=== PATIENT | male | born 2005 | race Caucasian/White ===

== ENCOUNTER 2025-04-18 10:47 | Outpatient (AMB) | payer OTHER, SELFPAY ==
--- NOTE | 2025-04-18 11:00 | MHC.PC.OV ---
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 Intake Note: New patient to establish care and cpe Enterprise Infrastructure Architect Required: No Allergies No Known Allergies Allergy (Verified 04/18/25 11:17) Medication List - Last Reconciled 04/18/25 by TEVIN Cooley-NELL infliximab (Remicade) IV Tobacco use date assessed: 04/18/25 Dental Screening Dental Screen Date: 04/18/25 Did you have a dental visit in the last 12 months?: No Did you have a dental problem in the last 6 months where you did not have access to dental care?: No Was dental information given to patient?: Yes HPI HPI Comments History of Present Illness Details 20 y/o M with obesity, ulcerative colitis Social: Computer Science and IT; 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 Looking for work. Surgery: None Family hx: Mom w/ prediabetes; Dad HLD; 1 brother, 1 sister; MGM alive; MGF alive; PGM alive; PGF alive Health Maintenance Tdap 2021 Specialist: Optho - wears glasses GI History of Present Illness - The patient is a 20-year-old male here today to [facility], for a CPE and c/o back pain and leg pain. -No records, Coming from [facility] - Gradual onset of R ankle tendinitis flare since last Friday; worsens with lack of PT. - Right ankle pain, specifically worsens with movement. - Reports morning exacerbation of back pain, from upper to lower back w/ radiation down posterior R leg, started a few days ago w/o injury. - Tylenol ineffective; no trauma or injury evident. - On Remicade for ulcerative colitis since 16, no surgeries except colonoscopies. - Mild anxiety and depression, no previous counseling. Does not think he needs meds or counseling. - Mother with prediabetes prompts cholesterol and diabetes screenings. - Planning a two-week family visit to [place]. Past Surgical History - Two colonoscopies Family History - Mother: Prediabetes - Father: Elevated cholesterol - Maternal and paternal grandparents: Alive and healthy - Siblings: Alive and well Social History - Recently completed a [employer] science and [employer] degree. - Currently unemployed, seeking employment. - Not sexually active. - Upcoming family visit to [place] for two weeks. - Engages in planned physical therapy sessions and regular eye exams - No tobacco, alcohol, or substance use reported. Health Maintenance - Up-to-date on vaccinations, including tetanus shot in 2021. - Positive screenings for anxiety and depression, but only mild symptoms reported by patient. - Routine eye examinations recommended due to Remicade use. - Recommended cholesterol and diabetes screening given family history. Review of Systems - General: Reports some weight issues. - Musculoskeletal: Reports back and leg pain, specifically right ankle. - Neurological: Denies any injury to the affected areas. - Gastrointestinal: Denies bowel surgeries; under ulcerative colitis management. - Psychiatric: Reports anxiety and depressive symptoms without counseling. Physical Exam General: Well developed, well nourished, in no acute distress. Appears stated age. Head: Normocephalic, atraumatic. Eyes: Pupils are equal, round and reactive to light and accommodation. Conjunctivae are clear. Vision grossly normal. Ears: TMs clear AU, EACS WNL Nose: Patent, without discharge. Neck: Supple, no adenopathy or thyromegaly. Breast: Edu on SBE Lungs: Clear to auscultation bilaterally. No rales, rhonchi or wheeze noted. Good air flow in all mtz. Heart: Regular rate and rhythm. No murmurs, click, rubs or gallops are noted. Abdomen: Bowel sounds present in all quadrants. The abdomen is soft, nontender, with no masses or organomegaly noted. No hernias are noted. : Deferred. Reviewed BECCA & recommendations Pulses: Peripheral pulses are equal and palpable bilaterally. Extremities: No clubbing, cyanosis nor edema is noted. Neurologic: Gait and station normal. Cranial Nerves 2-12 intact. Motor strength grossly symmetrical and intact. No sensory loss. Balance normal. Pain w palp of thoracic lumbar spine and right paraspinally; + SLR on R, neurovasc intact; uncomfortable sitting for prolonged periods moving about in chair; uncomfortable w/ sitting to lying. Pain w/ active and passive ROM right ankle no erythema edema or excessive warmth to ankle joint Skin: No rashes, ulcers, or lesions noted. Turgor is good. Skin color is good. Hair and nails are without abnormalities. Psych: Normal eye contact, affect and mood appropriate, and normal interactions. Patient is alert and appropriate to context. Results Pending Discussion Notes After discussing with the patient, I offerd referral to specialists OR physical therapy; he feels PT is the best initial management for his back and leg pain after his return from [place]. Muscle relaxants (baclofen) and gabapentin were prescribed to manage pain and discomfort during his trip. I advised against taking these medications when driving or consuming alcohol. Emphasized the importance of regular eye exams due to Remicade use, as well as cholesterol and diabetes screenings due to family history risks. Explained that proper monitoring of ulcerative colitis is essential, although the patient's current management is stable. Discussed mild anxiety and depression findings, noting they do not substantially impact daily life currently. Explained future communication through the patient portal for test results and queries. Follow-up planned as needed post-physical therapy and discussion of lab results via the portal. Assessment and Plan - Muscle relaxant and gabapentin prescribed. - PT planned post-trip. - Ankle management strategies. - Continue Remicade. - Due for cholesterol/diabetes screening. - MDD/ISAIAH Symptoms mild; monitor. Patient Instructions - Call and schedule a PT appointment after [place] trip. - Take baclofen and gabapentin as prescribed for pain management. - Download and use patient portal for lab results and communication. - Notify eye doctor about Remicade use and schedule regular eye exams. - Alert healthcare provider immediately if experiencing significant pain or discomfort during the trip. - RTO 1 year CPE, sooner as needed. Consent Patient was informed and verbally consented to the use of an ambient scribe for clinic note documentation during this visit. An additional 20 minutes was spent addressing the problem(s) noted at todays visit. This includes time spent before the visit reviewing the chart, time spent during the visit, and time spent after the visit on documentation reviewing laboratory results, diagnostic imaging, medications, performing a medically necessary evaluation, counseling on diagnoses, care coordination, ordering appropriate tests, ordering appropriate medications, review of tests performed by other providers, reporting test results with the patient, communication with other healthcare providers. [facility] Medical History (Updated 04/18/25 @ 11:42 by Sylvia Hurley, TEVIN-NELL) No pertinent family history Tendonitis Ulcerative colitis Surgical History (Updated 04/18/25 @ 11:11 by Marianela Hdz MA) No pertinent past surgical history Social History (Updated 04/18/25 @ 11:12 by Marianela Hdz MA) Household Members: Family Household Members Other:: mother Both parents involved: No Caregiver staying overnight: No Housing: House Are you a primary customer care voice consultant to a significant other at home: No Do you presently have visiting nurse or other home services: No 75 years or older and lives alone: No Alcohol intake: never Patient Tobacco Use Status: Never used Tobacco e-Cigarette/Vaping Use: Never Used Second Hand Smoke Exposure: No service: No Current occupational status: unemployed Cognitive needs: No Hearing needs: No Vision needs: Yes (wear glasses) Questionnaire PHQ-9 Over the last 2 weeks, how often have you been bothered by any of the following problems? 1. Little interest or pleasure in doing things: several days 2. Feeling down, depressed, or hopeless: several days 3. Trouble falling or staying asleep, or sleeping too much: several days 4. Feeling tired or having little energy: more than half the days 5. Poor appetite or overeating: not at all 6. Feeling bad about yourself - or that you are a failure or have let yourself or your family down: not at all 7. Trouble concentrating on things, such as reading the newspaper or watching television: nearly every day 8. Moving or speaking so slowly that other people could have noticed. Or the opposite - being so fidgety or restless that you have been moving around a lot more than usual: nearly every day 9. Thoughts that you would be better off or of hurting yourself in some way: not at all Total score: 11 Depression Screening Interpretation: Positive Depression Screening Follow-up: Existing condition and Community Mental Health Worker F/U Depression Screening Done: Yes 96144 - PHQ-9 Billing: Yes Source: Developed by Drs. Real Young, Kimberly Sneed, Ihsan Sanches and colleagues, with an educational nahun from [employer]. Thrive Questionnaire Date Thrive assessed: 04/18/25 I am a: Patient What is your living situation today?: I have a steady place to live Within the past 12 months, did the food you bought not last and you didn't have the money to get more?: Sometimes True Within the past 12 months, did you worry whether your food would run out before you got money to buy more?: I choose not to answer this question Do you have trouble paying for medicines?: No Do you have trouble getting transportation to medical appointments?: No Do you have trouble paying your heating and electricity bill?: No Do you have trouble taking care of your child, family member or friend?: No Do you have trouble with day-to-day activities such as bathing, preparing meals, shopping, managing finances, etc.?: Yes Are you currently unemployed and looking for a job?: Yes Are you interested in more education?: No Please select the resources that you would like help with: Food Currently or been in a relationship where the following occur: No concerns reported THRIVE Score: 1 AUDIT C Alcohol Use Questionnaire (AUDIT-C) 1. How often do you have a drink containing alcohol?: Never 3. How often do you have six or more drinks on one occasion?: Never Total Score: 0 Score Reviewed/Action Taken: Yes ISAIAH-7 AMB Questionnaire ISAIAH-7 Date ISAIAH - 7 assessed: 04/18/25 Feeling nervous, anxious, or on edge: 1 = Several days Not being able to stop or control worryin = Several days Worrying too much about different things: 1 = Several days Trouble relaxin = Several days Being so restless that it is hard to sit still: 1 = Several days Becoming easily annoyed or irritable: 3 = Nearly every day Feeling afraid as if something awful might happen: 1 = Several days Total ISAIAH-7 score (0-4 normal; 5-9 mild; 10-14 moderate; 15-21 severe): 9 Source: Developed by Drs. Real Young, Kimberly Sneed, Ihsan Sanches and colleagues, with an educational nahun from [employer]. ISAIAH-7 Assessment Billing ISAIAH-7 Assessment Tool: ISAIAH-7 Assessment 70065 Physical exam (Primary Care) Vital Signs: Last Vital Signs Temp 97.6 F 04/18/25 11:05 Pulse 76 04/18/25 11:05 Resp 12 04/18/25 11:05 BP 124/72 04/18/25 11:05 Pulse Ox 97 04/18/25 11:05 Oxygen Delivery Method Room Air 04/18/25 11:05 BMI result Body Mass Index 52.2 BMI Assessment/Plan discussion: High BMI High, discussed plan: lifestyle Tobacco/Smoking Status: Tobacco use Status Tobacco use date assessed 04/18/25 04/18/25 11:04 Patient Tobacco Use Status Never used Tobacco 04/18/25 11:12 e-Cigarette/Vaping Use Never Used 04/18/25 11:12 PHQ-9: PHQ-9 Score PHQ-9: Total score 11 04/18/25 11:04 Depression Screening Interpretation: Positive Depression Screening Follow-up: Existing condition and Community Mental Health Worker F/U Thrive Assessment: Date of Thrive Assessment Date Thrive assessed 04/18/25 04/18/25 11:04 Currently or been in a relationship where the following occur: No concerns reported Coding Level of Care Code New Pt Level 2 (41564) New Pt Prev Care 18-39yr(21119 Diagnoses Encounter to establish care Z76.89 BMI 50.0-59.9, adult Z68.43 Lumbar back pain with radiculopathy affecting right lower extremity M54.16 Right ankle tendonitis M77.51 Ulcerative pancolitis without complication K51.00 Ulcerative colitis location: ulcerative pancolitis Digestive disease complication type: without complication Laboratory exam ordered as part of routine general medical examination Z00.00 Encounter for general adult medical examination with abnormal findings Z00.01 Additional Codes ISAIAH-7 Assessment Billing - ISAIAH-7 Assessment Tool: ISAIAH-7 Assessment 84132 ([id number]) PHQ-9 - 55073 - PHQ-9 Billing: Yes ([id number]) Assessment & Plan Assessment & Plan (1) Encounter to establish care: Code(s): Z76.89 - Persons encountering health services in other specified circumstances (2) BMI 50.0-59.9, adult: Code(s): Z68.43 - Body mass index [BMI] 50.0-59.9, adult Category: Medical (3) Lumbar back pain with radiculopathy affecting right lower extremity: Code(s): M54.16 - Radiculopathy, lumbar region Category: Medical (4) Right ankle tendonitis: Code(s): M77.51 - Other enthesopathy of right foot and ankle Category: Medical (5) Ulcerative colitis: Comment: managed at [facility] for now colon x 2, DX age 16 Code(s): K51.90 - Ulcerative colitis, unspecified, without complications Category: Medical Qualifiers: Ulcerative colitis location: ulcerative pancolitis Digestive disease complication type: without complication Qualified Code(s): K51.00 - Ulcerative (chronic) pancolitis without complications (6) Laboratory exam ordered as part of routine general medical examination: Code(s): Z00.00 - Encounter for general adult medical examination without abnormal findings Category: Medical (7) Encounter for general adult medical examination with abnormal findings: Onset Date: ~04/18/25 Code(s): Z00.01 - Encounter for general adult medical examination with abnormal findings Category: Medical Plan . Orders: Orders Lipid Panel Today K51.90 - Ulcerative colitis, unspecified, without complications, Z00.00 - Encounter for general adult medical examination without abnormal findings TSH reflex Free T4 Today K51.90 - Ulcerative colitis, unspecified, without complications, Z00.00 - Encounter for general adult medical examination without abnormal findings PT Evaluation and Treatment Today M54.16 - Radiculopathy, lumbar region, M77.51 - Other enthesopathy of right foot and ankle Complete Blood Count no Diff Today K51.90 - Ulcerative colitis, unspecified, without complications, Z00.00 - Encounter for general adult medical examination without abnormal findings Comprehensive Met. Panel Today K51.90 - Ulcerative colitis, unspecified, without complications, Z00.00 - Encounter for general adult medical examination without abnormal findings Hemoglobin A1c Today K51.90 - Ulcerative colitis, unspecified, without complications, Z00.00 - Encounter for general adult medical examination without abnormal findings IRON PROFILE Today K51.90 - Ulcerative colitis, unspecified, without complications, Z00.00 - Encounter for general adult medical examination without abnormal findings Microalbumin, Random (w Creat) Today K51.90 - Ulcerative colitis, unspecified, without complications, Z00.00 - Encounter for general adult medical examination without abnormal findings Vitamin B12 and Folate Today K51.90 - Ulcerative colitis, unspecified, without complications, Z00.00 - Encounter for general adult medical examination without abnormal findings Vitamin D 25-OH Total Today K51.90 - Ulcerative colitis, unspecified, without complications, Z00.00 - Encounter for general adult medical examination without abnormal findings Medications: New baclofen 10 mg PO BID PRN 14 tabs 0RF muscle spasm gabapentin 100 mg PO BEDTIME 30 caps 0RF Patient Instructions: Walk-In Care (Urgent Care): We Make it Easy Walk-in for urgent medical issues such as: ? Seasonal Allergies ? Insect Bites ? Cough ? Diarrhea ? Acute Asthma Attacks ? Back, Knee or Joint Pain ? Ear Infection ? Fever without a Rash ? Headaches ? Nausea ? [place] [facility], Rash or Skin Irritation ? Sore Throat ? Sports Physicals ? Vomiting Most insurances are accepted. Patients do not need to be part of the [facility] to seek care at the walk-in clinic. Locations [facility] [place] [address] ? [phone] [facility] Walk-In Care in [place] provides services to ages 18 and over. Open Friday-Friday: 8 a.m. to 5 p.m. and Friday: 9 a.m. to 3 p.m.* *Hours may vary due to staffing availability. To confirm Walk-In Care hours in [place], please call [phone]. [address] [place] [address] ? [phone] [facility] Walk-In Care in [place] provides services to ages 12 and over. Open Friday-Friday: 8 a.m. to 5 p.m. Hours may vary due to staffing availability. To confirm Walk-In Care hours in [place], please call [phone]. LABORATORY SERVICES: [facility] ? Primary Location [address] [place] [address] Friday through Friday 6:00 AM ? 5:00 PM Friday 7:00 AM ? 11:00 AM* [phone] The [facility] is centrally located near the front entrance of the [facility] for easy outpatient access. Convenient parking is provided for outpatients. *Hours may vary due to staffing availability. To confirm Laboratory hours for any location, please call [phone]. Offsite Location For your convenience, we offer offsite laboratory draw stations at the following locations: [address] [place] [address] ? [facility] [address], [address] Friday through Friday 7:30 AM ? 1:00 PM* [phone] *Hours may vary due to staffing availability. To confirm Laboratory hours for any location, please call [phone]. [place] [address] Friday through Friday 6:00 AM ? 3:30 PM* Friday 6:30 AM ? 3 PM* [phone] *Hours may vary due to staffing availability. To confirm Laboratory hours for any location, please call [phone]. [address] [facility] Friday through Friday 7:30 AM ? 4:00 PM* [phone] *Hours may vary due to staffing availability. To confirm Laboratory hours for any location, please call [phone]. [address] [facility] Friday through 9:00 AM ? 4:00 PM* *Hours may vary due to staffing availability. To confirm Laboratory hours for any location, please call [phone]. Appointments are not necessary. Walk-ins are welcome. Like all the departments throughout the [facility], our Lab undergoes frequent reviews to ensure the quality and accuracy of test results, and our staff takes special pride in its status as a nationally accredited facility. Patient Portal: ONE PATIENT. ONE RECORD. BETTER CARE. [facility] has a fully integrated, cutting-edge mobile electronic health information system that has revolutionized the way we care for our patients and manage our organization. This system improves communication and coordination enabling us to provide safe, higher-quality care, and an overall positive experience for staff and patients. Our first priority, as always, is to deliver the highest quality care possible. The system is running in the background supporting that priority. This portal is for all [facility] and [facility] services and practices. If you are experiencing any technical difficulties with enrolling or logging into the Patient Portal please complete the [facility] Patient Portal Technical Support Form. [facility] now offers a new secure on-line interactive tool for patients to review their health information ? ?Patient Portal. This interactive web portal will enable patients and their families to take an active role in their care by providing easy, secure access to their health information via the internet. The Patient Portal provides patients with instant access to their health information, including laboratory results, medications, allergies, demographic information, visit history, and more. In addition to managing their own care, parents and health care proxies with authorized consent will appreciate the ability to access the records of those individuals for whom they provide care. Please note: if you wish to gain access (Proxy) to another patient?s portal, you will be required to come to the Medical Records Department in person at [facility]. Both the patient giving proxy access and the proxy will need to provide photo identification and complete the appropriate authorization. The Patient Portal also allows track their appointments online. The [facility] Patient Portal also saves patients time by allowing them to submit updates to their demographic and contact information prior to their visits. Portal email notifications will also alert patients to any new activity on their portal, such as test results and new appointments. In order to initially enroll in the [facility] Patient Portal, you will need to enter some required information including the following: your [facility] Medical Record number your personal home email address name date of Please note: In order to enroll in the [facility] Patient Portal, we need to have your email address on file in your electronic medical record. ?The email address needs to be specific for one person (yourself) in order for your Portal enrollment to be successful. ?You can update your email address in person with our Registration staff when you are registering for a hospital visit. ?Otherwise, you will need to come to the Health Information Management (Medical Records) Department at [facility]. ?We are open from Friday ? Friday from 7:30 a.m. ? 4:30 p.m. ?You will be required to present a photo id. Once you have successfully enrolled in the Patient Portal, you will receive a one-time user id and password for the Portal, sent to your email address. ?This will allow you to log into the Patient Portal within 99 hrs and reset your own logon id and password, and define personal security questions. ?Once your permanent login and password have been set, you can log into the [facility] Patient Portal at any time via the blue button above or from the Portal Logon button on any page of the [facility] website. [facility] and [facility] encourage all of our patients to enroll in Patient Portal as it presents a valuable opportunity for patients and their families to actively participate in their care and stay healthy Welcome to [facility]. ?We look forward to working with you. Health screenings for men You should visit your health care provider regularly, even if you feel healthy. The purpose of these visits is to: Screen for medical issues Assess your risk for future medical problems Encourage a healthy lifestyle Update vaccinations and other preventive care services Help you get to know your provider in case of an illness Information Even if you feel fine, you should still see your provider for regular checkups. These visits can help you avoid problems in the future. For example, the only way to find out if you have high blood pressure is to have it checked regularly. High blood sugar and high cholesterol level also may not have any symptoms in the early stages. Simple blood tests can check for these conditions. There are specific times when you should see your provider or receive specific health screenings. The [place] Preventive Services Task Force publishes a list of recommended screenings. Below are screening guidelines for men ages 40 to 64. BLOOD PRESSURE SCREENING Have your blood pressure checked at least once every year. Watch for blood pressure screenings in your area. Ask your provider if you can stop in to have your blood pressure checked. Ask your provider if you need your blood pressure checked more often if: You have diabetes, heart disease, kidney problems, or are overweight or have certain other health conditions You have a first-degree relative with high blood pressure You are Black Your blood pressure top number is from 120 to 129 mm Hg, or the bottom number is from 70 to 79 mm Hg If the top number is 130 mm Hg or greater or the bottom number is 80 mm Hg or greater, this is considered stage 1 hypertension. Schedule an appointment with your provider to learn how you can lower your blood pressure. Effects of age on blood pressure CHOLESTEROL SCREENING Cholesterol screening should begin at age 35 for men with no known risk factors for coronary heart disease. Repeat cholesterol screening should take place: Every 5 years for men with normal cholesterol levels More often if changes occur in lifestyle (including weight gain and diet) More often if you have diabetes, heart disease, kidney problems, or certain other conditions COLORECTAL CANCER SCREENING If you are under age 45, talk to your provider about getting screened. You may need to be screened if you have a strong family history of colon cancer or polyps. Screening may also be considered if you have risk factors such as a history of inflammatory bowel disease or polyps. If you are age 45 to 75, you should be screened for colorectal cancer. There are several screening tests available: A stool-based fecal occult blood (gFOBT) or fecal immunochemical test (FIT) every year A stool sDNA test every 1 to 3 years Flexible sigmoidoscopy every 5 years or every 10 years with stool testing FIT done every year CT colonography (virtual colonoscopy) every 5 years Colonoscopy every 10 years You may need a colonoscopy more often if you have risk factors for colorectal cancer, such as: Ulcerative colitis A personal or family history of colorectal cancer A history of growths in your colon called adenomatous polyps DENTAL EXAM Go to the dentist once or twice every year for an exam and cleaning. Your dentist will evaluate if you have a need for more frequent visits. DIABETES SCREENING All adults who do not have risk factors for diabetes should be screened starting at age 35 and repeated every 3 years. If you have other risk factors for diabetes, such as a first degree relative with diabetes, overweight or obesity, high blood pressure, prediabetes, or a history of heart disease, you may be tested more often. If you are overweight and have other risk factors, such as high blood pressure and are planning to become , screening is recommended. EYE EXAM Have an eye exam every 2 to 4 years ages 40 to 54 and every 1 to 3 years ages 55 to 64. Your provider may recommend more frequent eye exams if you have vision problems or glaucoma risk. Have an eye exam that includes an examination of your retina (back of your eye) at least every year if you have diabetes. IMMUNIZATIONS Commonly needed vaccines include: Flu shot: get one every year COVID-19 vaccine: ask your provider what is best for you Tetanus-diphtheria and acellular pertussis (Tdap) vaccine: have as one of your tetanus-diphtheria vaccines if you did not receive it as an adolescent Tetanus-diphtheria: have a booster (or Tdap) every 10 years Varicella vaccine: receive 2 doses if you never had chickenpox or the varicella vaccine and were born in 1979 or after Hepatitis B vaccine: receive 2, 3, or 4 doses, depending on your exact circumstances, if you did not receive these as a child or adolescent, until age 59 Shingles (herpes zoster) vaccine: at or after age 50 Ask your provider if you should receive other immunizations, especially if you have certain medical conditions, such as diabetes or are at increased risk for some diseases such as pneumonia. INFECTIOUS DISEASE SCREENING Screening for hepatitis C: all adults ages 18 to 79 should get a one-time test for hepatitis C. Screening for human immunodeficiency virus (HIV): all people ages 15 to 65 should get a one-time test for HIV. Depending on your lifestyle and medical history, you may need to be screened for infections such as syphilis, chlamydia, and other infections. LUNG CANCER SCREENING You should have an annual screening for lung cancer with low-dose computed tomography (LDCT) if: You are age 50 to 80 years AND You have a 20 pack-year smoking history AND You currently smoke or have quit within the past 15 years OSTEOPOROSIS SCREENING If you are age 50 to 64 and have risk factors for osteoporosis, you should discuss screening with your provider. Risk factors can include long-term steroid use, low body weight, smoking, heavy alcohol use, having a fracture after age 50, or a family history of hip fracture or osteoporosis. Osteoporosis PHYSICAL EXAM All adults should visit their provider from time to time, even if they are healthy. The purpose of these visits is to: Screen for diseases Assess risk of future medical problems Encourage a healthy lifestyle Update vaccinations and other preventive care services Maintain a relationship with a provider in case of an illness Your height, weight, and body mass index (BMI) should be checked at every exam. During your exam, your provider may ask you about: Depression and anxiety Diet and exercise Alcohol and tobacco use Safety, such as use of seat belts and smoke detectors Your medicines and risk for interactions PROSTATE CANCER SCREENING If you're 55 through 69 years old, before having the test, talk to your provider about the pros and cons of having a PSA test. Ask about: Whether screening decreases your chance of dying from prostate cancer. Whether there is any harm from prostate cancer screening, such as side effects from testing or overtreatment of cancer when discovered. Whether you have a higher risk of prostate cancer than others. If you are age 55 or younger, screening is not generally recommended. You should talk with your provider about if you have a higher risk for prostate cancer. Risk factors include: Having a family history of prostate cancer (especially a brother or father) Being If you choose to be tested, the PSA blood test is repeated over time (yearly or less often), though the best frequency is not known. Prostate examinations are no longer routinely done on men with no symptoms. Prostate cancer SKIN EXAM Your provider may check your skin for signs of skin cancer, especially if you're at high risk. People at high risk include those who have had skin cancer before, have close relatives with skin cancer, or have a weakened immune system. TESTICULAR EXAM The [place] Preventive Services Task Force (USPSTF) now recommends against performing testicular self-exams. Doing testicular self-exams has been shown to have little to no benefit.
[2025-04-18 11:05] VITALS: BP 124/72; PULSE 76; RESP 12; TEMP 36.4; O2SAT 97; BMI 52.2
--- OUTSIDE RECORDS SUMMARY | 2025-04-18 11:53 | XMS_ITS | Encounter Summary ---
Author Organization [facility] Address [address] [place] [id number] Phone Care Team Providers Care Search Engine Marketing Strategist Name Role Phone Jade Dao MD Primary Care Provider [phone] Encounter Details Date Type Department Care Team (Late st Contact Info) Description 10/30/2016 Documentation [facility] [place] [facility] [address] [place] [address] Family Medicine, Physician [address] [place], [place] [id number] Social History Tobacco Use Types Packs/Day Years Used Date Smoking Tobacco: Never Comments:Never smoker Sex and Gender Information Value Date Recorded Sex Assigned at Male 07/12/2020 8:02 AM EDT Legal Sex Male 4:57 PM EDT Gender Identity Male 07/12/2020 8:02 AM EDT Sexual Orientation Straight 07/12/2020 8: 02 AM EDT documented as of this encounter Plan of Treatment Not on file documented as of this encounter Visit Diagnoses Not on filedocumented in this encounter Care Teams Search Engine Marketing Strategist Relationship Specialty Start Date End Date Jade Dao MD [address] [place] [id number] PCP - General Pediatrics 02/03/24 05/19/24 documented as of this encounter
--- OUTSIDE RECORDS SUMMARY | 2025-04-18 11:53 | XMS_ITS ---
Author Name [facility] Organization Unknown History of Medication Use Medication Directions Dispensed Refills Start Date End Date Stat us folic acid (FOLVITE) 1 MG tablet TAKE 1 TABLET(1 MG) BY MOUTH DAILY 07/29/2022 active cholecalciferol (VITAMIN D3) 50 mcg (2,000 unit) tablet Take 1 tablet (2,000 Units) by mouth daily 06/07/2022 2 active ergocalciferol (VITAMIN D2) 1,250 mcg (50,000 unit) capsule TAKE 1 CAPSULE BY MOUTH 1 TIME A WEEK 05/28/2022 active methotrexate 2.5 MG tablet Take 4 tablets (10 mg) by mouth every 7 days 10/03/2021 active acetaminophen (TYLENOL) tablet 325 mg 325 mg (2.13 mg/kg), Oral, Once, On 12/09/22 at 1300, For 1 dosePre-infusion Not to exceed 75mg/kg/day or 4000mg/day of acetaminophen, whichever is less 07/16/2021 3 completed folic acid (FOLVITE) 1 MG tablet Take 1 tablet (1 mg) by mouth daily 08/03/2020 1 active Problems Problem Status Onset Date Problem Type Date of Resolution Source Ulcerative pancolitis active 2019-11-05 [facility] BMI (body mass index), pediatric, greater than 99% for age active 2023-06-26 [facility]Act [facility] IBD (inflammatory bowel disease) active 2023-06-26 ProblemAct [facility] Cough active 2019-10-01 ProblemAct [facility] Physical deconditioning active 2023-06-27 ProblemAct [facility] [place] hump active 2023-06-26 ProblemAct [facility] Ulcerative pancolitis with rectal bleeding active EncounterDiagnosisAct [facility] Immunizations Vaccine Date Source Lot Number Status Influenza, Quad, Preservative Free 07/16/2021 [facility] 2 [id number] completed Influenza, Unspecified 06/15/2020 [facility] co mpleted Encounters Encounter Type Encounter Reason Primary Diagnosis Location Date Ambulatory Ulcerative (chronic) pancolitis without complications Ulcerative (chronic) pancolitis without complications [facility] [place] [place] 04/12/2025 Ambulatory Ulcerative (chronic) pancolitis without complications Ulcerative (chronic) pancolitis without complications [facility] ([facility] [place] 02/22/2025 Ambulatory [facility] [place] [place] 01/19/2025 Ambulatory Ulcerative (chronic) pancolitis without complications Ulcerative (chronic) pancolitis without complications [facility] ([facility] [place] 01/03/2025 Ambulatory Ulcerative (chronic) pancolitis without complications Ulcerative (chronic) pancolitis without complications [facility] ([facility] [place] 11/16/2024 Ambulatory Ulcerative (chronic) pancolitis without complications Ulcerative (chronic) pancolitis without complications [facility] ([facility] [place] 09/27/2024 Ambulatory Ulcerative (chronic) pancolitis without complications Ulcerative (chronic) pancolitis without complications [facility] ([facility] [place] 08/11/2024 Ambulatory Ulcerative (chronic) pancolitis without complications Ulcerative (chronic) pancolitis without complications [facility] ([facility] [place] 06/23/2024 Ambulatory Myalgia, unspecified site Myalgia, unspecified site [facility] ([facility] [place] 05/11/2024 Ambulatory Ulcerative (chronic) pancolitis without complications Ulcerative (chronic) pancolitis without complications [facility] ([facility] [place] 05/05/2024 Ambulatory Ulcerative (chronic) pancolitis without complications Ulcerative (chronic) pancolitis without complications [facility] ([facility] [place] 03/17/2024 Ambulatory Ulcerative (chronic) pancolitis without complications Ulcerative (chronic) pancolitis without complications [facility] ([facility] [place] 01/28/2024 Ambulatory Ulcerative (chronic) pancolitis without complications Ulcerative (chronic) pancolitis without complications [facility] ([facility] [place] 12/09/2023 Ambulatory Ulcerative (chronic) pancolitis without complications Ulcerative (chronic) pancolitis without complications [facility] ([facility] [place] 10/21/2023 Ambulatory Ulcerative (chronic) pancolitis without complications Ulcerative (chronic) pancolitis without complications [facility] ([facility] [place] 09/04/2023 Ambulatory Body mass index (BMI ) pediatric, greater than or equal to 95th percentile for age Body mass index (BMI) pediatric, greater than or equal to 95th percentile for age [facility] ([facility] [place] 06/26/2023 Ambulatory Body mass index (BMI ) pediatric, greater than or equal to 95th percentile for age Body mass index (BMI) pediatric, greater than or equal to 95th percentile for age [facility] ([facility] [place] 06/26/2023 Ambulatory Body mass index (BMI ) pediatric, greater than or equal to 95th percentile for age Body mass index (BMI) pediatric, greater than or equal to 95th percentile for age [facility] ([facility] [place] 06/26/2023 Ambulatory Ulcerative (chronic) pancolitis without complications Ulcerative (chronic) pancolitis without complications [facility] ([facility] [place] 06/23/2023 Ambulatory Ulcerative (chronic) pancolitis without complications Ulcerative (chronic) pancolitis without complications [facility] ([facility] [place] 06/05/2023 Ambulatory Ulcerative (chronic) pancolitis without complications Ulcerative (chronic) pancolitis without complications [facility] ([facility] [place] 05/05/2023 Ambulatory [facility] 03/25/2023 Ambulatory [facility] 03/24/2023 Ambulatory [facility] 03/21/2023 Ambulatory [facility] 01/31/2023 Ambulatory [facility] 01/24/2023 Ambulatory [facility] 01/21/2023 Ambulatory [facility] 12/13/2022 Ambulatory [facility] 11/29/2022 Ambulatory [facility] 10/22/2022 Ambulatory [facility] 09/02/2022 Ambulatory [facility] 05/26/2022 Ambulatory [facility] 04/07/2022 Ambulatory [facility] 02/18/2022 Ambulatory [facility] 02/16/2022 Ambulatory [facility] 02/15/2022 Ambulatory [facility] 01/05/2022 Ambulatory [facility] 10/13/2021 Ambulatory [facility] 07/20/2021 Care Team Organization Name Specialty Phone Email Start Date End Da te [facility] MARCUS CALVILLO Primary Care 05/05/2023 [facility] MARCUS CALVILLO Primary Care 01/25/2023 [facility] Jermaine Og Primary Care 05/31/2022 [facility] ([facility] [place] JERMAINE OG Primary Care [phone] 06/23/2023 [facility] ([facility] [place] MARCUS CALVILLO Primary Care 05/22/2022 06/23/2023
== END 2025-04-18 11:42 | disposition home or self-care (01) ==
LOC: HO.HMCFM 10:48
PROVIDERS: PCP Nurse Practitioner Family; Visit Provider Nurse Practitioner Family
DX: Z00.00 Encounter for general adult medical examination without abnormal findings (principal); K51.00 Ulcerative (chronic) pancolitis without complications; Z76.89 Persons encountering health services in other specified circumstances; Z68.43 Body mass index [BMI] 50.0-59.9, adult; M54.16 Radiculopathy, lumbar region; M77.51 Other enthesopathy of right foot and ankle

== ENCOUNTER → 2025-04-18 10:47 | Outpatient (BNVA) | payer OTHER, SELFPAY | PROVIDERS: PCP Nurse Practitioner Family; Visit Provider Nurse Practitioner Family | DX: Z00.01 Encounter for general adult medical examination with abnormal findings (principal); E66.9 Obesity, unspecified; M54.16 Radiculopathy, lumbar region; M77.51 Other enthesopathy of right foot and ankle; K51.00 Ulcerative (chronic) pancolitis without complications; Z68.43 Body mass index [BMI] 50.0-59.9, adult | CPT/HCPCS: 96127; 99202; 99385 ==

== ENCOUNTER 2025-04-18 11:51 | Outpatient (REF) | payer OTHER, SELFPAY ==
[2025-04-18 14:15] LABS: Hematocrit 42.5 % (42.0-52.0); Hemoglobin 14.7 g/dl (14.0-18.0); Mean Corpuscular HGB Conc 34.6 g/dl (31.0-36.0); Mean Corpuscular Hemoglobin 28.3 pg (27.0-33.0); Mean Corpuscular Volume 81.7 fL (80.0-98.0); NRBC Abs Auto 0.000 X10*3/uL (0.0-0.012); NRBC Pct Auto 0.0 /100WBC (0.0-0.2); Platelet Count 365 X10*3/uL (160-400); Red Blood Count 5.20 X10*6/uL (4.60-5.80); White Blood Count 7.8 X10*3/uL (4.8-10.8)
[2025-04-18 14:40] LABS: Hemoglobin A1C 122.4021 umol/L; Total Hemoglobin (HGBA1C) 4077.7409 umol/L
[2025-04-18 14:47] LABS: Alanine Aminotransferase 27 U/L (0-40); Albumin Level 4.6 g/dL (3.5-5.0); Alkaline Phosphatase 93 U/L (39-117); Anion Gap 13 (12-20); Aspartate Amino Transferase 29 U/L (5-37); Blood Urea Nitrogen 12 mg/dL (9-16); Calcium 9.3 mg/dL (8.4-10.2); Carbon Dioxide 23 mmol/L (22-29); Chloride 108 mmol/L (96-108); Cholesterol 140 mg/dL (<200); Estimated Glomerular Filt Rate > 60; HDL Cholesterol 37 mg/dL (>40); Iron 74 mcg/dL (45-160); Percent Iron Saturation 22 % (15-50); Potassium 4.0 mmol/L (3.3-5.1); Sodium 140 mmol/L (135-145); Total Iron Binding Capacity 342 mcg/dL (228-428); Total Protein 7.6 g/dL (6.5-8.0); Triglycerides 53 mg/dL (<150); Unsaturated Iron Binding 268 ug/dL
[2025-04-18 14:48] LABS: Microalbum/Creatinine Ratio Ur 5.5 ug/mg cr (<30)
[2025-04-18 15:05] LABS: Folate 5.0 ng/mL (> or = 4.0); Vitamin B12 355 pg/mL (200-900)
== END 2025-04-18 11:52 | disposition home or self-care (01) ==
LOC: HO.WFDLDS 11:51
PROVIDERS: Visit Provider Nurse Practitioner Family
DX: Z00.00 Encounter for general adult medical examination without abnormal findings (principal); K51.90 Ulcerative colitis, unspecified, without complications
CPT/HCPCS: 36415; 80053; 80061; 82043; 82306; 82570; 82607; 82746; 83036; 83540; 84443; 85027

== ENCOUNTER 2025-07-20 10:57 | Outpatient (RCR) | payer OTHER, SELFPAY ==
--- NOTE | 2025-05-16 11:56 | MHC.PT.EP ---
[facility] [place] Office [place] Office [place] Office [address] Nino Britton [address] [phone] F: [phone] F: [phone] F: [phone] F: [phone] Physical Therapy Plan of Care Date of Evaluation: 05/16/25 Date of Surgery: n/a Diagnosis: Radiculopathy, lumbar region Other enthesopathy of right foot and ankle Lumbar back pain with radiculopathy affecting right lower extremity *Right ankle tendonitis Assessment: Pt is a pleasant 20yo M who presents to PT with R low back pain and R ankle pain. He has intermittent radicular symptoms into RLE. He presents to PT with current impairments in pain, decreased ROM, decreased core stabilization, decreased LE strength, soft tissue restrictions, impaired posture, and impaired gait. He is limited functionally by prolonged standing, walking, stair navigation, bending, and sleeping. He is a good candidate for skilled PT in order to address current impairments to facilitate return to PLOF. He is recommended t be seen 2x/week for 4 weeks and will be reassessed Frequency and Duration: The patient will be seen 2x/week for 4 weeks Short Term Goals: Pt will be I with HEP to promote self management of symptoms Pt will have centralization of RLE symptoms Child Neurologist Goals: Pt will tolerate prolonged standing and walking > 20 minutes without low back or ankle pain Pt will demonstrate ability to squat and sheepskin pickler object from floor with proper mechanics and without pain Pt will demonstrate improvements in function as evidenced by statistically significant improvement in LEFI outcome measure Treatment Plan: Modalities to reduce pain, spasms and effusion. Manual therapy to restore motion and function. Therapeutic exercise to improve strength and flexibility. Neuromuscular re-education for posture and balance. Therapeutic activities to return to functional activities of daily living. Electronically signed by: Emily Forbes, PT, DPT Please sign and return to therapist. Thank you for your referral.
--- NOTE | 2025-07-20 11:55 | MHC.PT.DC ---
[facility] [place] [facility] [place] [facility] [place] [facility] [address] Nino Britton [address] [phone] F: [phone] F: [phone] F: [phone] F: [phone] Physical Therapy Discharge Report Diagnosis: Radiculopathy, lumbar region Other enthesopathy of right foot and ankle Lumbar back pain with radiculopathy affecting right lower extremity *Right ankle tendonitis Date of Surgery: n/a Date of Evaluation: 05/16/25 Date of Discharge: 07/20/25 Treatments to Date: 16 Cancellations to Date: No Shows to Date: Discharge Status: Independent with HEP Recommend MD Follow-up Discharge Summary: Pt was seen for skilled PT from 05/16/25-07/20/25. Today was his last scheduled appointment. He has overall made fair progress since SOC. He continues to have low back pain with intermittent radicular symptoms into LE's. He demonstrates independence with core stabilization and hip/glute strengthening HEP. We reviewed the importance of proper body mechanics throughout the day. I recommend pt continue with HEP consistently and follow up with his doctor due to continued pain and discomfort. Pt reports he sees his doctor next week. He is being D/C to HEP at this time. He has printed copy of HEP and therabands. No further questions or concerns reported at D/C Electronically signed by: Emily Muñoz, PT, DPT Please sign and return to therapist. Thank you for your referral.
== END 2025-07-20 11:55 | disposition home or self-care (01) ==
LOC: HO.PT 10:57
PROVIDERS: PCP Nurse Practitioner Family; Visit Provider Nurse Practitioner Family
DX: M54.16 Radiculopathy, lumbar region (principal); M77.51 Other enthesopathy of right foot and ankle
CPT/HCPCS: 97110; 97112; 97161; 97530

== ENCOUNTER 2025-08-24 12:23 | Outpatient (REF) | payer OTHER, SELFPAY ==
[2025-08-24 19:03] LABS: Erythrocyte Sedimentation Rate 16 MM/HR (0-15)
[2025-08-26 12:53] LABS: Anti Nuclear Antibody Screen NEGATIVE (NEGATIVE)
== END 2025-08-24 12:24 | disposition home or self-care (01) ==
LOC: HO.WFDLDS 12:23
PROVIDERS: PCP Nurse Practitioner Family; Visit Provider Nurse Practitioner Family
DX: K51.00 Ulcerative (chronic) pancolitis without complications (principal); M54.16 Radiculopathy, lumbar region; M77.51 Other enthesopathy of right foot and ankle; E66.9 Obesity, unspecified; R29.898 Other symptoms and signs involving the musculoskeletal system; M25.551 Pain in right hip; Z23 Encounter for immunization; Z68.43 Body mass index [BMI] 50.0-59.9, adult
CPT/HCPCS: 36415; 85652; 86038; 86140; 86431; 90471; 90656; 99212

== ENCOUNTER 2025-08-24 12:23 | Outpatient (AMB) | payer OTHER, SELFPAY ==
--- NOTE | 2025-08-24 12:25 | A.OFFPC_ITS ---
Vital Signs 08/24/25 12:29 Height 5 ft 8 in Weight 334 lb 8 oz BMI 50.9 BP 132/72 Blood Pressure Location Lt brachial Position Sitting Respiration 13 Pulse 75 Pulse Source Pulse Oximeter Temp 97.3 F Temp Source Oral Pulse Oximetry (%) 99 Oxygen Delivery Method Room Air Intake Visit Reasons: pain in leg Intake Note: Patient c/o px on legs Case Management Coordinator Required: No Allergies No Known Allergies Allergy (Verified 08/24/25 12:26) Medication List - Last Reconciled 08/24/25 by TEVIN Cooley- baclofen 10 mg PO BID PRN gabapentin 100 mg PO BEDTIME infliximab (Remicade) IV Tobacco use date assessed: 08/24/25 Dental Screening Dental Screen Date: 08/24/25 Did you have a dental visit in the last 12 months?: Yes Did you have a dental problem in the last 6 months where you did not have access to dental care?: No Was dental information given to patient?: Patient has dentist HPI HPI Comments History of Present Illness Details 20 y/o M with obesity, ulcerative coliti s Social: Computer Science and IT; 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 Looking for work. Surgery: None Family hx: Mom w/ prediabetes; Dad HLD; 1 brother, 1 sister; MGM alive; MGF alive; PGM alive; PGF alive Health Maintenance Tdap 2021 Flu 08/24/25 Specialist: Optho - wears glasses GI History of Present Illness The patient is a 20 year old individual presenting with complaints of low back, leg, and ankle pain. Low back, leg, and ankle pain: - The patient presents for follow-up of low back pain, bilateral leg pain, and right ankle pain after completing physical therapy at the end of June. - The patient reports some improvement, but progress has stalled. - Symptoms include stiffness and pain up on waking in the morning, which improves with walking. - Pain in the legs is exacerbated by sit ting for a period. - The leg pain alternates sides, affecti ng the right leg one day and the left leg the next. - A recent episode involved being unable to lift the left foot for about 30 minutes in the morning. - Previous trials of baclofen and gabape ntin did not provide significant relief and have been discontinued. - Ibuprofen was effective but caused sto mach upset, he has known UC - The patient tried Voltaren gel but thi s in was ineffective Ulcerative colitis: - The patient has a history of ulcerativ e colitis, which increases the risk for other autoimmune conditions. - The condition precludes the regular us e of NSAIDs like ibuprofen due to gastrointestinal side effects. Review of Systems - Musculoskeletal: Reports low back pain , primarily upon waking. - Reports bilateral leg pain that is sti ff in the morning and improves with mobi lity, but is exacerbated after sitting. - The leg pain alternates between the le ft and right sides. - Reports an episode of being unable to lift the left leg for 30 minutes this morning. - Reports right ankle pain. - Gastrointestinal: Reports stomach upse t with previous ibuprofen use. Physical Exam General: Well developed, well nourished, in no acute distress. Appears stated age. Head: Normocephalic, atraumatic. Eyes: Pupils are equal, round and reactive to light and accommodation. Conjunctivae are clear. Vision grossly normal. Neck: Supple, no adenopathy or thyromegaly. Pulses: Peripheral pulses are equal and palpable bilaterally. Extremities: No clubbing, cyanosis nor edema is noted. Neurologic: Gait and station normal. Cranial Nerves 2-12 intact. Motor strength grossly symmetrical and intact. No sensory loss. Balance normal. Pain w palp of lumbar spine, unable to lift legs when the are fully extended; he is able to bend his knees and then pull his legs into his chest; this too takes a great amount of effort; He has pain w palpation over lateral R hip and lateral R upper leg. uncomfortable sitting for prolonged periods moving about in chair; uncomfortable w/ sitting to lying. Pain w/ active and passive ROM right ankle no erythema edema or excessive warmth to ankle joint Skin: No rashes, ulcers, or lesions noted. Turgor is good. Skin color is good. Hair and nails are without abnormalities. Psych: Normal eye contact, affect and mood appropriate, and normal interactions. Patient is alert and appropriate to context. Medical Decision Making The patient is a 20-year-old individual presenting with persistent low back and bilateral leg pain, which has not fully resolved despite a course of physical therapy. The lack of expected progress and the patient's history of ulcerative colitis raises suspicion for an underlying autoimmune process. The immediate plan is to investigate this possibility with a panel of autoimmune labs. If the labs are positive, a referral to rheumatology will be initiated. If the labs are unremarkable a potential referral to pain management. Given the severity of symptoms, imaging will be ordered concurrently with the labs, including an MRI of the lumbar spine and an X-ray of the hip For symptomatic management, previous trials of baclofen and gabapentin were ineffective and will be discontinued. Celebrex 200 mg will be prescribed for as- needed use, as it is a safer NSAID alternative for patients with ulcerative colitis. Plan 1. Low Back And Leg Pain - An autoimmune lab panel will be ordere d to investigate for underlying inflammatory causes. - An MRI of the lumbar spine and an X-ra y of the hip will be ordered. - A referral to rheumatology will be stephanie lois if lab results are abnormal. - If labs are normal, a referral to a pa in management group will be considered. - Prescribed Celebrex 200 mg to be taken twice a day as needed for severe pain. - Discontinue baclofen and gabapentin du e to ineffectiveness. - Schedule a follow-up appointment to re view imaging results and formulate a comprehensive treatment plan. 2. Preventative Care - The patient received an influenza vacc ine during the visit. Patient Instructions - Please go to the lab to have your bloo d drawn today before you leave. - You may go to the main hospital in [facility] or outpatient in [place] for your hip X-ray; it is a walk-in service. - The MRI of your back needs approval fr om your insurance. The MRI department will call you to schedule the appointment once it is approved. - A new medication, Celebrex, has been p rescribed. Take it only as needed on days when your pain is severe, up to twice a day. This is a better option for you than ibuprofen because of your stomach condition. - You can stop taking gabapentin and kirstie lofen as they were not helping your symptoms. - We will schedule a follow-up visit aft er your test results are back to discuss the findings and create a treatment plan. Consent The rationale for blood work was discussed, including the need to investigate a possible autoimmune cause for the patient's persistent symptoms, especially given the history of ulcerative colitis. The patient verbally consented to proceeding with the recommended lab tests. Patient was informed and verbally consented to the use of an ambient scribe for clinic note documentation during this visit. Total time spent caring for the patient today was 30 minutes. This includes time spent before the visit reviewing the chart, time spent during the visit, and time spent after the visit on documentation, reviewing laboratory results, diagnostic imaging, medications, performing a medically necessary evaluation, counseling on diagnoses, care coordination, ordering appropriate tests, ordering appropriate medications, review of tests performed by other providers, reporting test results with the patient, communication with other healthcare providers. [facility] Medical History (Updated 08/24/25 @ 13:34 by Sylvia Hurley [facility]) No pertinent family history Tendonitis Ulcerative colitis Surgical History (Updated 04/18/25 @ 11:11 by Marianela Hdz MA) No pertinent past surgical history Social History (Updated 04/18/25 @ 11:12 by Marianela Hdz MA) Household Members: Family Household Members Other:: mother Both parents involved: No Caregiver staying overnight: No Housing: House Are you a primary manager urgent care to a significant other at home: No Do you presently have visiting nurse or other home services: No 75 years or older and lives alone: No Alcohol intake: never Patient Tobacco Use Status: Never used Tobacco e-Cigarette/Vaping Use: Never Used Second Hand Smoke Exposure: No service: No Current occupational status: unemployed Cognitive needs: No Hearing needs: No Vision needs: Yes (wear glasses) Questionnaire Thrive Questionnaire Date Thrive assessed: 08/24/25 I am a: Patient What is your living situation today?: I have a steady place to live Within the past 12 months, did the food you bought not last and you didn't have the money to get more?: Sometimes True Within the past 12 months, did you worry whether your food would run out before you got money to buy more?: I choose not to answer this question Do you have trouble paying for medicines?: No Do you have trouble getting transportation to medical appointments?: No Do you have trouble paying your heating and electricity bill?: No Do you have trouble taking care of your child, family member or friend?: No Do you have trouble with day-to-day activities such as bathing, preparing meals, shopping, managing finances, etc.?: Yes Are you currently unemployed and looking for a job?: Yes Are you interested in more education?: No Please select the resources that you would like help with: Food Currently or been in a relationship where the following occur: No concerns reported THRIVE Score: 1 ISAIAH-7 AMB Questionnaire ISAIAH-7 Date ISAIAH - 7 assessed: 04/18/25 Source: Developed by Drs. Real Young, Kimberly Sneed, Ihsan Sanches and colleagues, with an educational nahun from [employer]. Physical exam (Primary Care) Vital Signs: Last Vital Signs Temp 97.3 F 08/24/25 12:29 Pulse 75 08/24/25 12:29 Resp 13 08/24/25 12:29 BP 132/72 08/24/25 12:29 Pulse Ox 99 08/24/25 12:29 Oxygen Delivery Method Room Air 08/24/25 12:29 BMI result Body Mass Index 50.9 Tobacco/Smoking Status: Tobacco use Status Tobacco use date assessed 08/24/25 08/24/25 12:28 Patient Tobacco Use Status Never used Tobacco 08/24/25 12:28 e-Cigarette/Vaping Use Never Used 08/24/25 12:28 Thrive Assessment: Date of Thrive Assessment Date Thrive assessed 08/24/25 08/24/25 12:28 Currently or been in a relationship where the following occur: No concerns reported Office Procedures Flu Questionnaire Does the patient have a severe egg allergy?: No Does the patient have severe life threatening allergies?: No Does the patient have a fever or illness today?: No Has the patient ever had Guillain-[place]wood Syndrome?: No Has the patient ever had any past reaction to a flu shot?: No Immunizations Fluarix [id number] (PF) 45 mcg (15 mcg x 3)/0.5 mL IM syringe Performing Provider: ARAVIND Cooley [place] [facility] [place] [facility] Administered by: Marianela Hdz MA on 08/24/25 12:34 Dose Route Admin Location Dispensed Lot Number Expiration Date [employer] 0.5 mL IM Left Deltoid 0.5 mL [id number] 03/28/26 [id number] VIS Given Date VIS Provided VIS Publication Date 08/24/25 Single Vaccine 24 Eligibility Eligibility Date Funding Source Not [facility] Eligible 08/24/25 Private Coding Level of Care Code Est Pt Level 4 (80109) Complex visit Add On G2211 Diagnoses Ulcerative pancolitis without complication K51.00 Digestive disease complication type: without complication Ulcerative colitis location: ulcerative pancolitis Lumbar back pain with radiculopathy affecting right lower extremity M54.16 Right ankle tendonitis M77.51 Influenza vaccination administered at current visit Z23 Weakness of both lower extremities R29.898 Laterality: bilateral Right hip pain M25.551 Assessment & Plan Assessment & Plan (1) Ulcerative colitis: Comment: [facility] [place] [facility] colon x 2, DX age 16 Code(s): K51.90 - Ulcerative colitis, unspecified, without complications Category: Medical Qualifiers: Digestive disease complication type: without complication Ulcerative colitis location: ulcerative pancolitis Qualified Code(s): K51.00 - Ulcerative (chronic) pancolitis without complications (2) Lumbar back pain with radiculopathy affecting right lower extremity: Code(s): M54.16 - Radiculopathy, lumbar region Category: Medical (3) Right ankle tendonitis: Code(s): M77.51 - Other enthesopathy of right foot and ankle Category: Medical (4) Influenza vaccination administered at current visit: Onset Date: ~08/24/25 Code(s): Z23 - Encounter for immunization Category: Medical (5) Lower extremity weakness: Code(s): R29.898 - Other symptoms and signs involving the musculoskeletal system Category: Medical Qualifiers: Laterality: bilateral Qualified Code(s): R29.898 - Other symptoms and signs involving the musculoskeletal system (6) Right hip pain: Code(s): M25.551 - Pain in right hip Category: Medical (7) Lower extremity weakness: Code(s): R29.898 - Other symptoms and signs involving the musculoskeletal system Category: Medical Plan . Orders: Orders Influenza [id number] Immunization Today Z23 - Encounter for immunization Erythrocyte Sedimentation Rate Today K51.00 - Ulcerative (chronic) pancolitis without complications, M54.16 - Radiculopathy, lumbar region, M77.51 - Other enthesopathy of right foot and ankle XR femur RT 2V Today M25.551 - Pain in right hip, M54.16 - Radiculopathy, lumbar region, R29.898 - Other symptoms and signs involving the musculoskeletal system RAJAT Reflex Titer and Pattern Today K51.00 - Ulcerative (chronic) pancolitis without complications, M54.16 - Radiculopathy, lumbar region, M77.51 - Other enthesopathy of right foot and ankle Rheumatoid Factor Today K51.00 - Ulcerative (chronic) pancolitis without complications, M54.16 - Radiculopathy, lumbar region, M77.51 - Other enthesopathy of right foot and ankle C Reactive Protein Today K51.00 - Ulcerative (chronic) pancolitis without complications, M54.16 - Radiculopathy, lumbar region, M77.51 - Other enthesopathy of right foot and ankle MR lumbar spine wo con Today M54.16 - Radiculopathy, lumbar region, R29.898 - Other symptoms and signs involving the musculoskeletal system XR hip RT min 2V Today M25.551 - Pain in right hip, M54.16 - Radiculopathy, lumbar region, R29.898 - Other symptoms and signs involving the musculoskeletal system Medications: New celecoxib (Celebrex) 200 mg PO BID PRN 60 caps 0RF pain Discontinued baclofen Discontinued Reason: Patient Completed Course 10 mg PO BID PRN 14 tabs 0RF muscle spasm gabapentin Discontinued Reason: Patient Completed Course 100 mg PO BEDTIME 30 caps 0RF
[2025-08-24 12:29] VITALS: BP 132/72; PULSE 75; RESP 13; TEMP 36.3; O2SAT 99; BMI 50.9
--- OUTSIDE RECORDS SUMMARY | 2025-08-24 15:27 | XMS_ITS | Encounter Summary ---
Author Organization [facility] Address [address] [place] [address] Phone Care Team Providers Care Mushroom Laborer Name Role Phone Jade Dao MD Primary Care Provider [phone] Encounter Details Date Type Department Care Team (Late st Contact Info) Description 10/19/2013 [place]ation [facility] [place] [address] [place] [address] Family Medicine, Physician [address] [place], [place] [id number] Social History Tobacco Use Types Packs/Day Years Used Date Smoking Tobacco: Never Assessed Sex and Gender Information Value Date Recorded Sex Assigned at Male 07/12/2020 8:02 AM EDT Legal Sex Male 4:57 PM EDT Gender Identity Male 07/12/2020 8:02 AM EDT Sexual Orientation Straight 07/12/2020 8: 02 AM EDT documented as of this encounter Plan of Treatment Not on file documented as of this encounter Visit Diagnoses Not on filedocumented in this encounter Care Teams Mushroom Laborer Relationship Specialty Start Date End Date Jade Dao MD [address] [place] [address] PCP - General Pediatrics 02/03/24 05/19/24 documented as of this encounter
--- OUTSIDE RECORDS SUMMARY | 2025-08-24 15:27 | XMS_ITS | Encounter Summary ---
Author Organization [facility] Address [address] [place] [address] Phone Care Team Providers Care Triple Valve Tester Name Role Phone Jade Dao MD Primary Care Provider [phone] Encounter Details Date Type Department Care Team (Late st Contact Info) Description 02/21/2015 Documentation [facility] [place] Medicine [address] [place] [address] Family Medicine, Physician [address] [place], [place] [phone] Social History Tobacco Use Types Packs/Day Years [...] on filedocumented in this encounter Care Teams Triple Valve Tester Relationship Specialty Start Date End Date Jade Dao MD [address] [place] [address] PCP - General Pediatrics 02/03/24 05/19/24 documented as of this encounter
--- OUTSIDE RECORDS SUMMARY | 2025-08-24 15:27 | XMS_ITS | Encounter Summary ---
Author Organization [facility] Address [address] [place] [address] Phone Care Team Providers Care Figure Refinisher And Repairer Name Role Phone Jade Dao MD Primary Care Provider [phone] Encounter Details Date Type Department Care Team (Late st Contact Info) Description 06/25/2010 Documentation [facility] [place] Medicine [address] [place] [address] Family Medicine, Physician [address] [place], [place] [id number] Social History Tobacco Use Types Packs/Day Years [...] on filedocumented in this encounter Care Teams Figure Refinisher And Repairer Relationship Specialty Start Date End Date Jade Dao MD [address] [place] [address] PCP - General Pediatrics 02/03/24 05/19/24 documented as of this encounter
--- OUTSIDE RECORDS SUMMARY | 2025-08-24 15:27 | XMS_ITS | Encounter Summary ---
Author Organization [facility] Address [address] [place] [address] Phone Care Team Providers Care Horse Groomer Name Role Phone Jade Dao MD Primary Care Provider [phone] Encounter Details Date Type Department Care Team (Late st Contact Info) Description 01/25/2016 Documentation [facility] [place] Medicine [address] [place] [address] Family Medicine, Physician [address] [place], [place] [phone] Social History Tobacco Use Types Packs/Day Years [...] on filedocumented in this encounter Care Teams Horse Groomer Relationship Specialty Start Date End Date Jade Dao MD [address] [place] [address] PCP - General Pediatrics 02/03/24 05/19/24 documented as of this encounter
--- OUTSIDE RECORDS SUMMARY | 2025-08-24 15:27 | XMS_ITS | Encounter Summary ---
Author Organization [facility] Address [address] [place] [address] Care Team Providers Care Mock Up Builder Name Role Phone Jermaine Og MD Primary Care Provider [phone] Vickie Samaniego MD Primary Care Provider [phone] Reason for Visit * Reason Comments Medication Refill Encounter Details Date Type Department Care Team (Late Contact Info) Description 10/01/2021 Refill [facility] Gastroenterology, [address], [address] [place] [address] Marisa Kelley MD Ulcerative pancolitis Social History Tobacco Use Types Packs/Day Years Used Date Smoking Tobacco: Never Smokeless Tobacco: Never Sex and Gender Information Value Date Recorded Sex Assigned at Not on file Legal Sex Male 1:02 PM EST Gender Identity Not on file Sexual Orientation Not on file documented as of this encounter Miscellaneous Notes * Telephone Encounter - Capri Perry RN - 10/02/2021 8:12 AM EST Former DZ pt- Last seen March 2021 Dose correct No pending appts documented in this encounter Plan of Treatment Upcoming Encounters Date Type Department Care Team (Late st Contact Info) Description 09/13/2025 1:00 PM EST Appointment Infusion Center [address] [place] [address] documented as of this encounter Visit Diagnoses Diagnosis Ulcerative pancolitis Ulcerative pancolitis- Primary documented in this encounter Care Teams Mock Up Builder Relationship Specialty Start Date End Date Jermaine Og MD [address] [place] [address] [address] [place] [id number] PCP - General General Pediatrics 03/01/21 01/15/23 Vickie Samaniego MD [address] [facility] [address] [place] [address] PCP - General General Pediatrics 01/16/23 documented as of this encounter
--- OUTSIDE RECORDS SUMMARY | 2025-08-24 15:27 | XMS_ITS | Encounter Summary ---
Author Organization [facility] Address [address] [place] [address] Care Team Providers Care Academic Counselor Name Role Phone Jermaine Og MD Primary Care Provider [phone] Vickie Samaniego MD Primary Care Provider [phone] Reason for Visit * Reason Comments Medication Refill Encounter Details Date Type Department Care Team (Late Contact Info) Description 11/13/2022 Refill [facility] [place] [phone] Urvashi Tarango MD [address] [place] [address] Ulcerative pancolitis Social History Tobacco Use Types Packs/Day Years Used Date Smoking Tobacco: Never Smokeless Tobacco: Never Sex and Gender Information Value Date Recorded Sex Assigned at Not on file Legal Sex Male 1:02 PM EST Gender Identity Not on file Sexual Orientation Not on file documented as of this encounter Miscellaneous Notes * Telephone Encounter - Capri Perry RN - 11/13/2022 1:50 PM EST Last seen clinic 06-07-22 Dose correct Next appt 12-06-22 documented in this encounter Plan of Treatment Upcoming Encounters Date Type Department Care Team (Late Contact Info) Description 09/13/2025 1:00 PM EST Appointment Infusion Center [address] [address] documented as of this encounter Visit Diagnoses Diagnosis Ulcerative pancolitis Ulcerative pancolitis- Primary documented in this encounter Care Teams Academic Counselor Relationship Specialty Start Date End Date Jermaine Og MD [address] [facility] [address] [place] [address] PCP - General General Pediatrics 03/01/21 01/15/23 Vickie Samaniego MD [address] [facility] [address] [place] [address] PCP - General General Pediatrics 01/16/23 documented as of this encounter
--- OUTSIDE RECORDS SUMMARY | 2025-08-24 15:27 | XMS_ITS | Encounter Summary ---
Author Organization [facility] Address [address] [place] [address] Phone Care Team Providers Care Phlebotomy Supervisor Name Role Phone Jade Dao MD Primary Care Provider [phone] Encounter Details Date Type Department Care Team (Late st Contact Info) Description 10/30/2016 Documentation [facility] [place] [address] [place] [address] Family Medicine, Physician [address] [place], [place] [phone] Social History Tobacco Use Types Packs/Day Years [...] on filedocumented in this encounter Care Teams Phlebotomy Supervisor Relationship Specialty Start Date End Date Jade Dao MD [address] [place] [address] PCP - General Pediatrics 02/03/24 05/19/24 documented as of this encounter
--- OUTSIDE RECORDS SUMMARY | 2025-08-24 15:27 | XMS_ITS | Encounter Summary ---
Author Organization [facility] Address [address] [place] [address] Care Team Providers Care Termite Exterminator Name Role Phone Jermaine Og MD Primary Care Provider [phone] Vickie Samaniego MD Primary Care Provider [phone] Reason for Visit * Reason Comments Medication Refill Encounter Details Date Type Department Care Team ([facility] Contact Info) Description 03/11/2021 Refill [facility] Gastroenterology, [address] [address] Marisa Kelley MD Vitamin D deficiency Social History Tobacco Use Types Packs/Day Years Used Date Smoking Tobacco: Never Smokeless Tobacco: Never Sex and Gender Information Value Date Recorded Sex Assigned at Not on file Legal Sex Male 1:02 PM EST Gender Identity Not on file Sexual Orientation Not on file documented as of this encounter Miscellaneous Notes * Telephone Encounter - Capri Perry RN - 03/12/2021 9:41 AM EDT DZ pt- Last seen clinic 11/24/20 Scoped 12/13/20 Dose correct Will check level with next infusion documented in this encounter Plan of Treatment Upcoming Encounters Date Type Department Care Team (Late Contact Info) Description 09/13/2025 1:00 PM EST Appointment Infusion Center [address] [facility] 2nd [place] [address] documented as of this encounter Visit Diagnoses Diagnosis Vitamin D deficiency Ulcerative pancolitis- Primary documented in this encounter Care Teams Termite Exterminator Relationship Specialty Start Date End Date Jermaine Og MD [address] [facility] [place] [address] [place] [id number] PCP - General General Pediatrics 03/01/21 01/15/23 Vickie Samaniego MD [address] [facility] [place] [address] [place] [address] PCP - General General Pediatrics 01/16/23 documented as of this encounter
--- OUTSIDE RECORDS SUMMARY | 2025-08-24 15:27 | XMS_ITS | Encounter Summary ---
Author Organization [facility] Address [address] [place] [address] Care Team Providers Care On Air Personality Name Role Phone Jermaine Og MD Primary Care Provider [phone] Vickie Samaniego MD Primary Care Provider [phone] Reason for Visit * Reason Comments Medication Refill Encounter Details Date Type Department Care Team (Late Contact Info) Description 05/27/2022 Refill [facility] Gastroenterology, [place] [address] [place] [address] Urvashi Tarango MD [address] [place] [address] Vitamin D deficiency Social History Tobacco Use Types Packs/Day Years Used Date Smoking Tobacco: Never Smokeless Tobacco: Never Sex and Gender Information Value Date Recorded Sex Assigned at Not on file Legal Sex Male 1:02 PM EST Gender Identity Not on file Sexual Orientation Not on file documented as of this encounter Miscellaneous Notes * Telephone Encounter - Kathy Arceo RN - 05/28/2022 2:15 PM EDT Last appt: 12/05/21 Next appt: 06/07/22 Weight: 145.5 kg Allergies: reviewed Current dosage: Continue Vitamin D supplementation MD Tarango patient documented in this encounter Plan of Treatment Upcoming Encounters Date Type Department Care Team (Late Contact Info) Description 09/13/2025 1:00 PM EST Appointment Infusion Center [address] [place] [address] documented as of this encounter Visit Diagnoses Diagnosis Vitamin D deficiency Ulcerative pancolitis- Primary documented in this encounter Care Teams On Air Personality Relationship Specialty Start Date End Date Jermaine Og MD [address] [facility] 1 [place] [address] PCP - General General Pediatrics 03/01/21 01/15/23 Vickie Samaniego MD [address] [facility] 1 [place] [address] PCP - General General Pediatrics 01/16/23 documented as of this encounter
--- OUTSIDE RECORDS SUMMARY | 2025-08-24 15:27 | XMS_ITS | Encounter Summary ---
Author Organization [facility] Address [address] [place] [address] Phone Care Team Providers Care Podiatric Surgeon Name Role Phone Jade Dao MD Primary Care Provider [phone] Encounter Details Date Type Department Care Team (Late st Contact Info) Description 11/09/[address] [facility] [place] [address] [place] [address] Family Medicine, Physician [address] [place], [place] [id number] Social History Tobacco Use Types Packs/Day Years [...] on filedocumented in this encounter Care Teams Podiatric Surgeon Relationship Specialty Start Date End Date Jade Dao MD [address] [place] [address] PCP - General Pediatrics 02/03/24 05/19/24 documented as of this encounter
--- OUTSIDE RECORDS SUMMARY | 2025-08-24 15:27 | XMS_ITS | Clinical Summary ---
Author Organization [facility] Address [address] [facility] [address] [place] [address] Phone Care Team Providers Care Special Needs Bus Driver Name Role Phone Vickie Samaniego MD Primary Care Provider Allergies No known active allergies Medications methotrexate (TREXALL) 10 MG tablet Take by mouth. 4 table daily Active cholecalciferol (VITAMIN D3) 25 MCG (1,000 unit) tablet Take 1,000 Units by mouth daily. Active sodium chloride 0.9% SolP 250 mL with ID-inFLIXimab <REMICADE> 100 mg/10 mL Inject into the vein once. Active Immunizations Immunization Administration Dates Next Due COVID-19 (Pre-07/21) Pfizer Vaccine, mRNA, PF ,05/05/2021 Tdap 06/01/2022 Social History Tobacco Use Types Packs/Day Years Used Date Smoking Tobacco: Never Smokeless Tobacco: Never Alcohol Use Standard Drinks/Week Comments Never 0 (1 standard drink = 0.6 oz pur e alcohol) Education Answer Date Recorded Are you interested in more education? Not on rain e 01/25/2023 Are you concerned about learning? Not on file 01/25/2023 No 01/25/2023 No 01/25/2023 Digital Access Answer Date Recorded No 02/25/2023 No 02/25/2023 Reliable internet access at home? Not on file 02/25/2023 Device with a working camera? Not on file Sex and Gender Information Value Date Recorded Sex Assigned at Male 05/31/2022 11:36 PM EDT Legal Sex Male 3:47 PM EDT Gender Identity Male 05/31/2022 11:36 PM EDT Sexual Orientation Not on file Last Filed Vital Signs Vital Sign Reading Time Taken Comments Blood Pressure 140/97 06/01/2022 1:02 AM EDT Pulse 87 06/01/2022 1:02 AM EDT Temperature 36.7 C (98 F) 06/01/2022 1:02 AM EDT Respiratory Rate 18 06/01/2022 1:02 AM EDT Oxygen Saturation 100% 06/01/2022 1:02 AM EDT Inhaled Oxygen Concentration - - Weight 136.1 kg (300 lb) 05/31/2022 11:34 PM EDT Height 170.2 cm (5' 7 ) 05/31/2022 11:34 PM EDT Body Mass Index 46.99 05/31/2022 11:34 PM EDT Plan of Treatment Health Maintenance Due Date Last Done Comments DEPRESSION SCREENING 2015 SMOKING Hx and SMOKELESS TOB ACCO SCREENING 2016 HEPATITIS C SCREENING 2021 HIV ONE-TIME SCREENING (18-6 5 YEARS) 2021 COVID-19 VACCINE (3 - Pfizer risk series) 06/23/2021 05/26/2021, 05/05/2021 PNEUMOCOCCAL VACCINES (0-49 years) (2 of 2 - PCV) 05/09/2022 05/09/2021, 08/06/2004, 2003, Additional history exists INFLUENZA VACCINE (#1) 2025 , 06/15/2020, 06/09/2020, Additional history exists Adult Td,Tdap Booster 06/01/2032 06/01/2022, 014 HIB VACCINES Completed 08/06/2004, 09/30, 2003, Additional history exists HEPATITIS A VACCINES Completed 03/09/2015, 09/01/20 14 HPV VACCINES Completed 03/09/2015, 09/30, 09/01/2014 MENINGOCOCCAL VACCINES (ACWY) Completed 05/17/2019, 09/01/2014 MENINGOCOCCAL VACCINES (B) Completed 05/09/2021, Medical Devices Not on file Insurance [place] [facility] [place] [facility] [place] [facility] [place] [facility] Member Subscriber Plan / Payer (Ef fective 2021-Present) Name:Andrea Cooper Relation to Subscriber:Self Name:Andrea Cooper Payer ID:[id number] Group ID:Not on file Type:Medicaid Address: [place] [address] [place] [address] [place] [facility] [place] [facility] INSURANCE Care Teams Special Needs Bus Driver Relationship Specialty Start Date End Date Vickie Samaniego MD NPI: [id number] [place], [place] [address] [address] PCP - General Pediatrics 06/09/21 Additional Source Comments The information contained in this document represents components of the legal health record. It is not the complete legal health record.[facility]
--- OUTSIDE RECORDS SUMMARY | 2025-08-24 15:27 | XMS_ITS | Encounter Summary ---
Author Organization [facility] Address [address] [place] [address] Phone Care Team Providers Care Dance Hall Host/Hostess Name Role Phone Jade Dao MD Primary Care Provider [phone] Encounter Details Date Type Department Care Team (Late st Contact Info) Description 06/25/2010 [place] [facility] [address] [place] [address] Family Medicine, Physician [address] [place], [place] [phone] Social History Tobacco Use Types Packs/Day Years [...] on filedocumented in this encounter Care Teams Dance Hall Host/Hostess Relationship Specialty Start Date End Date Jade Dao MD [address] [place] [address] PCP - General Pediatrics 02/03/24 05/19/24 documented as of this encounter
--- OUTSIDE RECORDS SUMMARY | 2025-08-24 15:27 | XMS_ITS | Encounter Summary ---
Author Organization [facility] Address [address] [place] [address] Care Team Providers Care Medical Sonographer Name Role Phone Jermaine Og MD Primary Care Provider Vickie Samaniego MD Primary Care Provider [phone] Reason for Visit * Reason Comments Medication Refill Encounter Details Date Type Department Care Team (Late Contact Info) Description 02/28/2022 Refill [facility] Gastroenterology, [place] [address] [place] [address] Urvashi Tarango MD [address] [place] [address] Vitamin D deficiency Social History Tobacco Use Types Packs/Day Years Used Date Smoking Tobacco: Never Smokeless Tobacco: Never Sex and Gender Information Value Date Recorded Sex Assigned at Not on file Legal Sex Male 1:02 PM EST Gender Identity Not on file Sexual Orientation Not on file documented as of this encounter Miscellaneous Notes * Telephone Encounter - Capri Perry RN - 03/01/2022 9:23 AM EDT Last seen 12-05-21 Last level 23 On 02-12-22 Dose correct Next appt 06-07-22 documented in this encounter Plan of Treatment Upcoming Encounters Date Type Department Care Team (Late Contact Info) Description 09/13/2025 1:00 PM EST Appointment Infusion Center [address] [address] documented as of this encounter Visit Diagnoses Diagnosis Vitamin D deficiency Ulcerative pancolitis- Primary documented in this encounter Care Teams Medical Sonographer Relationship Specialty Start Date End Date Jermaine Og MD 150 [facility] 1 [facility] [place] [place] [address] PCP - General General Pediatrics 03/01/21 01/15/23 Vickie Samaniego MD [address] [facility] 1 [place] [address] PCP - General General Pediatrics 01/16/23 documented as of this encounter
--- OUTSIDE RECORDS SUMMARY | 2025-08-24 15:27 | XMS_ITS | Clinical Summary ---
Author Organization [facility] Address [address] [place] [address] Phone Care Team Providers Care Half Sole Fitter Name Role Phone Unavailable Primary Care Provider Unavailabl e Allergies No known active allergies Medications ibuprofen 200 MG tablet Take 400 mg by mouth every 6 (six) hours as needed for mild pain. Active methotrexate 2.5 MG tablet 3 06/20/2020 Activ e methotrexate 10 MG tablet Take 10 mg by mouth. Active folic acid 1 MG tablet 5 06/13/2020 Active ergocalciferol 1.25 MG (77080 UT) capsule TK 1 C PO 1 TIME A WK 1 06/20/2020 Active INFLIXIMAB IV Infuse into a venous catheter. Active FeroSul 325 (65 Fe) MG tablet Take 1 tablet by mouth 2 (two) times a day. 07/30/2020 Active omeprazole 40 MG capsule 07/30/2020 Active ergocalciferol 1.25 MG (20708 UT) capsule TAKE 1 CAPSULE BY MOUTH 1 TIME A WEEK 04/03/2021 Active methotrexate 2.5 MG tablet Take 10 mg by mouth every 7 days. 08/03/2020 Active Active Problems Problem Noted Date Diagnosed Date Impaired glucose tolerance 02/06/2024 Assessment & Plan (02/06/2024 10:57 AM EDT): Was referred to weight management clinic at [facility]. Patient was seen once in May 2023. Patient has not followed up. Our medical day care home mother will help patient to connect with weight management. IBD (inflammatory bowel disease) 06/26/2023 Adolescent depression 01/16/2023 Assessment & Plan (01/16/2023 5:00 PM EDT): PHQ 9 abnormal Patient denies SI Offered referral to provider - he is not sure he is interested but will consider it & schedule an appointment if he wishes Ulcerative pancolitis 10/30/2019 Overview (05/09/2021): Dx by GI 09/2019. Started on Fe for HgB 10, Pred & prilosec 05/09/2021 : Pt under care of [facility] Dr. Kelley or Dr Tarango; Remicaide infusions q 6 weeks. Infusions was started on 04/04/2020. methotrexate 4 pills every week Assessment & Plan (02/06/2024 10:55 AM EDT): Follow[facility] by [facility]. Gets Remicade infusion every 6 weeks. Assessment & Plan (01/16/2023 3:48 PM EDT): On Remicade infusions Q [address] Tarango took patient off methotrexate & folic acid. He was told he was just on it to try & prevent antibodies to the Remicade & now OK to come off it GI did extensive lab panel in November. Glucose was 112 Will order HgB A1C today Due for follow up with GI but Dr Tarango is out on maternity leave. He says he needs to wait till she comes back Assessment & Plan (05/09/2021 2:13 PM EDT): Pt under care of [facility] Dr. Kelley or Dr Tarango; Remicaide infusions q 6 weeks. Infusions was started on 04/04/2020. methotrexate 4 pills every week They have strongly encouraged Andrea to get the Coronavirus vaccine, 05/01/21: Spoke with Andrea- told him he absolutely needs to get the vaccine and to get started now before goes to college. Wt- 300 lbs- additional risk factor . Assessment & Plan (10/13/2020 5:19 PM EST): Pt under care of [facility] Dr. Kelley; Remicaide infusion cx'd on Friday due to covid 19 in household; pt will have covid 19 testing on Friday due to being asymptomatic and [place] holiday; pt/parent to call prior for any questions or concerns over weekend or if has any onset of symptoms Assessment & Plan (07/11/2020 2:10 PM EDT): Is on Remicaide, off PDN, Fe, prilosec, doing well, only occassional short lived cramps. On MTX and folic acid, and vitamin D. Follow up with Dr. Kelley Obesity (BMI 30-39.9) 09/04/2017 Overview (01/16/2023): Referred to [facility] [place]. Last seen 08/14/16. Had elevated insulin & low HDL. + Hx impaired fasting glucose. Normal HgB A1C. Mild FREDY (resolved Fall 2017) Had T & A done for RFEDY in 2016. Sleep study in 2017 showed resolution of FREDY Assessment & Plan (02/06/2024 10:56 AM EDT): Was referred to sleep medicine clinic last fall due to severe obstructive sleep apnea. Patient had a tonsillectomy and adenoidectomy in January 2017. It appears that patient did not follow-up with sleep medicine. Our medical day care home mother will help patient to connect with them. Patient likely needs CPAP or BiPAP at night. Assessment & Plan (01/16/2023 4:58 PM EDT): Will refer to weight management clinic to discuss other options for wt loss - meds, surgical options PHQ9 abnormal. Lots of issues with poor sleep & fatigue - ? Depression ( offered referral to provider, patient is not sure he wants to see anyone. He will schedule appointment if he wishes). ? FREDY - will schedule sleep study Assessment & Plan (07/11/2020 2:09 PM EDT): Has lost 10 lbs. Encourage eating earlier in day, continue changes in diet. Exercise an hour a day Make sure to follow up with auditing clerk this Fall as requested by them Assessment & Plan (05/17/2019 4:21 PM EDT): Last note from [facility] 07/2018, Pt & mom say he was last seen 01/2019. Next appt 06/2019 Assessment & Plan (04/27/2018 2:48 PM EDT): Last seen by [facility] Wt loss program in 2016 Will check labs today Family will arrange FU Family history of congenital hearing loss 2016 Overview (07/11/2020): Mother & sister & dad - both with coclear implants Assessment & Plan (10/13/2020 5:17 PM EST): Spoke w/ mom today via hearing impaired sign language line as well as pt on [address] Myopia 10/20/2013 Overview (04/27/2018): followed by Dr John Assessment & Plan (07/11/2020 2:01 PM EDT): Seeing ey Assessment & Plan (04/27/2018 3:02 PM EDT): Followed by DR John.Seen last week. Has new glasses ordered but not in yet. No glasses with him today Resolved Problems Problem Noted Date Diagnosed Date Resolved Date Intermittent asthma 04/27/20 18 Overview (04/27/2018): used albuterol in past but not in years (2013) Obstructive sleep apnea 09/27/189906/29 Overview (05/17/2019): mild chronic per sleep study 12/2015 ordered by Anita. Supine dependent T & A 02/10/1707/2018: Resolved per endo note Assessment & Plan (07/11/2020 2:03 PM EDT): Reviewed above. Polysomnogram WNL in 07/16 Assessment & Plan (04/27/2018 2:48 PM EDT): Had T & A last year. Still snores Family will arrange follow up with ENT. Needs FU sleep study Immunizations Immunization Administration Dates Next Due DTaP 5 07/08/2007, 5,2003,08/10,2003 H1N1 09/12/2009 HPV Vaccine 9 Valent 03/09/2015 HPV, Quadrivalent 10/18/2014,09/01/2014 Hep A, ped/adol 03/09/2015,09/01/2014 Hep B, ped/adol 01/24/2004,2003,2003 Hib (PRP-T) 08/06/2004, 4,2003,06/15 IPV 07/08/2007, 4,2003,06/15 Influenza 06/15/2020 Influenza Split 11/23/2013, 2,06/25/2011,06/21 Influenza, injectable, quadrivalent 09/08/2019,1 Influenza, injectable, quadr ivalent, preservative free 07/16/2021,06/09/2020,09/08/2019,09/13,06/26/2017 Influenza, injectable, trivalent 008,06/30/2007,2003,10/19 Influenza, intranasal, quadrivalent 09/28/2015,1 11/02/2013 MMR 04/20/2004 MMRV 07/08/2007 Meningococcal B Trumenba 05/09/2021,07/11/2020 Meningococcal Conj (Menactra) MCV4P 05/17/2019,1 11/02/2013 PPD Test 05/14/2021 Pneumococcal Conjugate 08/06/2004,2003,2003,06/15 Pneumococcal Polysaccharide 05/09/2021 Tdap 06/01/2022,09/01/2014 Varicella 04/20/2004 Family History Medical History Relation Name Comments Bipolar disorder Father Thomas Cooper Deafness Father Thomas Cooper Obesity Mother Delfina Cooper Sensorineural hearing loss Mother Delfina Cooper Sensorineural hearing loss Sister Marizol Cooper Relation Name Status Comments Brother Micheal Cooper Alive Brother: Alive and well Father Thomas Cooper Alive Father: Hearing impairment Mother Delfina Cooper Alive Mother: Hearing impairment Sister Marizol Cooper Alive Sister: Hearing impairment Social History Tobacco Use Types Packs/Day Years Used Date Smoking Tobacco: Never Smokeless Tobacco: Never Comments:Never smoker Alcohol Use Standard Drinks/Week Comments No 0 (1 standard drink = 0.6 oz pur e alcohol) Hunger/Food Answer Date Recorded In the last 12 months, did y ou or your family ever eat less than you felt you should because there wasn't enough money for food? No 02/06/2024 Stable Housing Answer Date Recorded Are you worried that in the next 2 months you may not have stable housing? No 02/06/2024 Transportation Concerns Answer Date Rec orded In the last 12 months, have you or your family ever had to go without healthcare because you didn't have a way to get there? No 02/06/2024 Hazards in Home Answer Date Recorded Think about the place you li ve. Do you have problems with any of the following? Pests (mice or roaches), mold, no/not working smoke detectors, water leaks, no window guards. No 2023 Financing Utilities Answer Date Recorde d In the last 12 months, has t he electric, gas, oil, or water company threatened to shut off your services in your home? No 02/06/2024 Safety at Home Answer Date Recorded Are you or your family worried about feeling saf e in your home? No 02/06/2024 Outside Support Answer Date Recorded Do you feel that you need mo re support from other people or programs to help you care for yourself or your family? No 02/06/2024 Understanding Health Concerns Answer Da te Recorded Do you need help understandi ng your or your child's healthcare needs (diagnosis, medications, plan, etc.)? No 02/06/2024 Financing Health Concerns Answer Date R ecorded In the last 12 months, was t here a time when your child needed to see a doctor or get medications or supplies but could not because of cost? No 02/06/2024 Missing School or Work Answer Date Larry rded Did you or your child miss s chool or work because of a health problem that could have been avoided? No 02/06/2024 Child Education Answer Date Recorded Do you have concerns about y our/your child's learning or behavior in school, preschool, or daycare? No 02/06/2024 Sex and Gender Information Value Date Recorded Sex Assigned at Male 07/12/2020 8:02 AM EDT Legal Sex Male 4:57 PM EDT Gender Identity Male 07/12/2020 8:02 AM EDT Sexual Orientation Straight 07/12/2020 8: 02 AM EDT Last Filed Vital Signs Vital Sign Reading Time Taken Comments Blood Pressure 108/67 02/06/2024 10:30 AM EDT Pulse 61 02/06/2024 10:30 AM EDT Temperature 36.7 C (98 F) 01/16/2023 3:18 PM EDT Respiratory Rate 20 06/03/2019 4:11 PM EDT Oxygen Saturation 97% 11/12/2019 2:25 PM EST Inhaled Oxygen Concentration - - Weight 155 kg (341 lb 12.8 oz) 02/06/2024 10:30 AM EDT Height 173.4 cm (5' 8.25 ) 02/06/2024 10:30 AM E DT Body Mass Index 51.59 02/06/2024 10:30 AM EDT Plan of Treatment Health Maintenance Due Date Last Done Comments Influenza Vaccines (#1) 2025 07/16/20 21, 06/15/2020, 06/09/2020, Additional history exists COVID-19 Vaccine (2024- 6 season) 2025 11/24/2021, 05/26/2021, 05/05/2021 DTaP,Tdap,and Td Vaccines (8 - Td or Tdap) 06/01/2032 06/01/2022, 09/01/2014, 07/08/2007, Additional history exists Hepatitis B Vaccines Completed 01/24/2004, 2003, 2003 HIB Vaccines Completed 08/06/2004, 09/30, 2003, Additional history exists IPV Vaccines Completed 07/08/2007, 12/29, 2003, Additional history exists MMR Vaccines Completed 07/08/2007, 04/20/2004 Varicella Vaccines Completed 07/08/2007, 04/20/2004 HPV Vaccines Completed 03/09/2015, 09/30, 09/01/2014 Hepatitis A Vaccines Completed 03/09/2015, 09/01/20 14 Meningococcal Vaccine Completed 05/17/2019, 014 Men B Vaccine Completed 05/09/2021, 07/11/2020 Pneumococcal Vaccine Completed 05/09/2021, 08/06/2004, 2003, Additional history exists Insurance [facility] NON PCC
--- OUTSIDE RECORDS SUMMARY | 2025-08-24 15:27 | XMS_ITS | Encounter Summary ---
Author Organization [facility] Address [address] [place] [address] Care Team Providers Care Licensed Vocational Nurse Name Role Phone Jermaine Og MD Primary Care Provider Vickie Samaniego MD Primary Care Provider [phone] Reason for Visit * Reason Comments Medication Refill Encounter Details Date Type Department Care Team (Late Contact Info) Description 12/04/2021 Refill [facility] Gastroenterology, [place] [address] [place] [address] Urvashi Tarango MD [address] [place] [address] Vitamin D deficiency Social History Tobacco Use Types Packs/Day Years Used Date Smoking Tobacco: Never Smokeless Tobacco: Never Sex and Gender Information Value Date Recorded Sex Assigned at Not on file Legal Sex Male 1:02 PM EST Gender Identity Not on file Sexual Orientation Not on file documented as of this encounter Miscellaneous Notes * Telephone Encounter - Capri Perry RN - 12/05/2021 8:50 AM EST Last seen clinic 04-16-21 lasty level 24 on 11/20/21\ Order only one more month - then off for summer Next appt TODAY documented in this encounter Plan of Treatment Upcoming Encounters Date Type Department Care Team (Late Contact Info) Description 09/13/2025 1:00 PM EST Appointment Infusion Center [address] [address] documented as of this encounter Visit Diagnoses Diagnosis Vitamin D deficiency Ulcerative pancolitis- Primary documented in this encounter Care Teams Licensed Vocational Nurse Relationship Specialty Start Date End Date Jermaine Og MD 150 [facility] [address] [place] [address] PCP - General General Pediatrics 03/01/21 01/15/23 Vickie Samaniego MD 150 [facility] [address] [place] [address] PCP - General General Pediatrics 01/16/23 documented as of this encounter
--- OUTSIDE RECORDS SUMMARY | 2025-08-24 15:27 | XMS_ITS | Encounter Summary ---
Author Organization [facility] Address [address] [place], [place] [id number] Care Team Providers Care Clinical Director Name Role Phone Jermaine Og MD Primary Care Provider Vickie Samaniego MD Primary Care Provider [phone] Reason for Visit * Reason Comments Medication Refill Encounter Details Date Type Department Care Team ([facility] st Contact Info) Description 10/01/2021 Refill [facility] Gastroenterology, [place] [address] [place] [address] Jose Fitzgerald MD [address] [place] [address] Vitamin D deficiency Social History Tobacco Use Types Packs/Day Years Used Date Smoking Tobacco: Never Smokeless Tobacco: Never Sex and Gender Information Value Date Recorded Sex Assigned at Not on file Legal Sex Male 1:02 PM EST Gender Identity Not on file Sexual Orientation Not on file documented as of this encounter Miscellaneous Notes * Telephone Encounter - Christiane Morales MA - 10/03/2021 12:47 PM EST Follow up scheduled for 12/05/21 * Telephone Encounter - Capri Perry RN - 10/02/2021 9:42 AM EST Please schedule follow up with SS * Telephone Encounter - Capri Perry RN - 10/02/2021 8:13 AM EST Former DZ pt- ?? Last seen March 2021 ?? Dose correct- level 21 in August ?? No pending appts documented in this encounter Plan of Treatment Upcoming Encounters Date Type Department Care Team (Late st Contact Info) Description 09/13/2025 1:00 PM EST Appointment [facility] 10 [place] [address] documented as of this encounter Visit Diagnoses Diagnosis Vitamin D deficiency Ulcerative pancolitis- Primary documented in this encounter Care Teams Clinical Director Relationship Specialty Start Date End Date Jermaine Og MD 150 [facility] [place] [address] [place] [address] PCP - General General Pediatrics 03/01/21 01/15/23 Vickie Samaniego MD 150 [facility] [place] [address] [place] [address] PCP - General General Pediatrics 01/16/23 documented as of this encounter
--- OUTSIDE RECORDS SUMMARY | 2025-08-24 15:27 | XMS_ITS | Encounter Summary ---
Author Organization [facility] Address [address] [place] [address] Care Team Providers Care Sales Marketing Name Role Phone Jermaine Og MD Primary Care Provider [phone] Vickie Samaniego MD Primary Care Provider [phone] Reason for Visit * Reason Comments Medication Refill Encounter Details Date Type Department Care Team (Late st Contact Info) Description 04/01/2021 Refill [facility] Gastroenterology, [place] [address] [place] [address] Jose Fitzgerald MD [address] [place] [address] Vitamin D deficiency Social History Tobacco Use Types Packs/Day Years Used Date Smoking Tobacco: Never Smokeless Tobacco: Never Sex and Gender Information Value Date Recorded Sex Assigned at Not on file Legal Sex Male 1:02 PM EST Gender Identity Not on file Sexual Orientation Not on file documented as of this encounter Miscellaneous Notes * Telephone Encounter - Capri Perry RN - 04/03/2021 11:29 AM EDT DZ pt- ?? Last seen clinic 11/24/20 Scoped 12/13/20 ?? Dose correct ?? Will check level with next infusion 04/16- appt with infusion documented in this encounter Plan of Treatment Upcoming Encounters Date Type Department Care Team (Late st Contact Info) Description 09/13/2025 1:00 PM EST Appointment Infusion Center [address] [place] [address] documented as of this encounter Visit Diagnoses Diagnosis Vitamin D deficiency Ulcerative pancolitis- Primary documented in this encounter Care Teams Sales Marketing Relationship Specialty Start Date End Date Jermaine Og MD 150 [facility] 1 [place] [address] PCP - General General Pediatrics 03/01/21 01/15/23 Vickie Samaniego MD 150 [facility] 1 [place] [address] PCP - General General Pediatrics 01/16/23 documented as of this encounter
--- OUTSIDE RECORDS SUMMARY | 2025-08-24 15:27 | XMS_ITS | Encounter Summary ---
Author Organization [facility] Address [address] [place] [address] Phone Care Team Providers Care Campaign Consultant Name Role Phone Jade Dao MD Primary Care Provider [phone] Encounter Details Date Type Department Care Team (Late st Contact Info) Description 02/10/2017 Documentation [facility] Family Medicine [address] [place] [address] Family Medicine, Physician [address] [place], [place] [phone] Social History Tobacco Use Types Packs/Day Years [...] on filedocumented in this encounter Care Teams Campaign Consultant Relationship Specialty Start Date End Date Jade Dao MD [address] [place] [address] PCP - General Pediatrics 02/03/24 05/19/24 documented as of this encounter
--- OUTSIDE RECORDS SUMMARY | 2025-08-24 15:27 | XMS_ITS | Clinical Summary ---
Author Organization [facility] Address [address] [place] [address] Care Team Providers Care Senior Agricultural Assistant Name Role Phone Vickie Samaniego MD Primary Care Provider [phone] Source Comments Please note that some or all of the patient's information could have additional privacy protections. State laws allow health care providers to render certain types of treatment to minors without parental consent. Please do not assume that this information can be shared solely by obtaining just the consent of the patient's parent/guardian. Please determine if all or part of the patient's care was rendered without parent/guardian involvement. And, if so, obtain the minor's consent prior to disclosure.[facility] Allergies No known active allergies Medications 0.9% sodium chloride Parenteral Solution with inFLIXimab 100 mg Recon Soln IV Inject into the vein once Active INFLIXIMAB IV Inject into the vein Active methotrexate 2.5 MG tabletIndicatio ns:Ulcerative pancolitis Take 4 tablets (10 mg) by mouth every 7 days 16 tablet 5 2 Active Additional Information Patient not taking.Reported on 01/19/2025 potassium chloride in 0.9%NaCl 10 mEq/100 mL Piggyback Inject into the vein Active methotrexate 10 MG tablet Take by mouth Active ergocalciferol (VITAMIN D2) 1,250 mcg (50,000 unit) capsuleIndicati ons:Vitamin D deficiency TAKE 1 CAPSULE BY MOUTH 1 TIME A WEEK 4 capsule 1 2 Active Additional Information Patient not taking.Reported on 01/19/2025 [employer] COVID-19 AG SELF TEST Kit TEST DIRECTED TODAY 2 Active folic acid (FOLVITE) 1 MG tabletIndicatio ns:Ulcerative pancolitis TAKE 1 TABLET(1 MG) BY MOUTH DAILY 90 tablet 1 2 Active Additional Information Patient not taking.Reported on 01/19/2025 Active Problems Problem Noted Date Diagnosed Date Physical deconditioning 06/27/2023 [place] hump 06/26/2023 IBD (inflammatory bowel disease) 06/26/2023 BMI (body mass index), pediatric, greater than 9 9% for age 0906/26/2023 Ulcerative pancolitis 11/05/2019 Cough 10/01/2019 Resolved Problems Problem Noted Date Diagnosed Date Resolved Date Diarrhea, unspecified type 09/30/2019 0 11/05/2019 Overview (09/30/2019): Added automatically from request for surgery [id number] 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/2019 11/05/2019 Rectal bleeding 09/27/2019 11/05/2019 Encounters Date Type Department Care Team Description 07/26/2025 12:53 PM EDT - 07/26/2025 11:59 PM EDT Hospital Encounter Infusion Center [address] [place] [address] Ulcerative pancolitis (Primary Dx) Discharge Disposition: Home or Self Care 06/07/2025 1:00 PM EDT - 06/07/2025 11:59 PM EDT Hospital Encounter Infusion Center [address] [place] [address] Ulcerative pancolitis (Primary Dx) Discharge Disposition: Home or Self Care from Last 3 Months Immunizations Immunization Administration Dates Next Due Influenza, Quad, Preservative Free 07/16/2021 Influenza, Unspecified 06/15/2020 Family History Medical History Relation Name Comments No Known Problems Brother Sensorineural hearing loss Father No Known Problems Maternal Grandfather No Known Problems Maternal Grandmother Obesity Mother Sensorineural hearing loss Mother c ochlear No Known Problems Paternal Grandfather Ovarian cancer Paternal Grandmother Sensorineural hearing loss Sister Anesthesia problems Neg Hx Relation Name Status Comments Brother Alive Father Alive Maternal Grandfather Alive Maternal Grandmother Alive Mother Alive Paternal Grandfather Alive Paternal Grandmother Alive Sister Alive Social History Tobacco Use Types Packs/Day Years Used Date Smoking Tobacco: Never Smokeless Tobacco: Never Tobacco Cessation:Counseling Given: Not Answered Sex and Gender Information Value Date Recorded Sex Assigned at Not on file Legal Sex Male 1:02 PM EST Gender Identity Not on file Sexual Orientation Not on file Last Filed Vital Signs Vital Sign Reading Time Taken Comments Blood Pressure 105/69 07/26/2025 2:30 PM EDT Pulse 60 07/26/2025 2:30 PM EDT Temperature 36.4 C (97.5 F) 07/26/2025 2:30 PM EDT Respiratory Rate 16 07/26/2025 2:30 PM EDT Oxygen Saturation 97% 01/19/2025 11: 33 AM EDT Inhaled Oxygen Concentration - - Weight 155.4 kg (342 lb 9.5 oz) 025 12:56 PM EDT Height 173.8 cm (5' 8.43 ) 07/26/2025 1 2:56 PM EDT Body Mass Index 51.45 07/26/2025 12:56 PM EDT Plan of Treatment Upcoming Encounters Date Type Department Care Team (Late st Contact Info) Description 09/13/2025 1:00 PM EST Appointment Infusion Center [address] [place] [address] Health Maintenance Due Date Last Done Comments DTaP/TDAP/TD VACCINES (1 - Tdap) 2010 ADOLESCENT HIV SCREENING 2016 IBD Patients: Up to Date on Colonoscopy 12/14/2023 12/13/2020 COVID-19 Vaccine ( season) 2025 05/26/2021, 05/05/2021 INFLUENZA (#1) 2025 07/16/2021, 06/15/2020, 06/15/2020 IBD Patients on Methotrexate: AST or ALT in Past 90 Days 11/23/2025 07/26/2025, 07/26/2025 IBD Patients on Biologic: Annual TB Test 12/14/2025 11/16/2024 NIRSEVIMAB VACCINES UNDER 8 MONTHS Aged Out No longer eligible b ased on patient's age to complete this topic Procedures Procedure Name Priority Date/Time Associated Diagnosis Comments GAMMA GLUTAMYL TRANS (GGT) Routine 07/26/2025 12:58 PM EDT Ulcerative pancolitis COMPREHENSIVE METABOLIC PANEL Routine 07/26/2025 12:58 PM EDT Ulcerative pancolitis C-REACTIVE PROTEIN Routine 07/26/2025 12 :58 PM EDT Ulcerative pancolitis ERYTHROCYTE SEDIMENT RATE (ESR) Routine 07/26/2025 12:58 PM EDT Ulcerative pancolitis CBC WITH AUTO DIFFERENTIAL Routine 07/26/2025 12:58 PM EDT Ulcerative pancolitis GAMMA GLUTAMYL TRANS (GGT) Routine 06/07/2025 1:03 PM EDT Ulcerative pancolitis COMPREHENSIVE METABOLIC PANEL Routine 06/07/2025 1:03 PM EDT Ulcerative pancolitis C-REACTIVE PROTEIN Routine 06/07/2025 1: 03 PM EDT Ulcerative pancolitis ERYTHROCYTE SEDIMENT RATE (ESR) Routine 06/07/2025 1:03 PM EDT Ulcerative pancolitis CBC WITH AUTO DIFFERENTIAL Routine 06/07/2025 1:03 PM EDT Ulcerative pancolitis from Last 3 Months Results * (ABNORMAL) Erythrocyte Sediment Rate (ESR) (07/26/2025 12:58 PM EDT) Only the most recent of2 resultswithin the time period is included. Sed Rate by Modified Westergren 28(H) < OR = 15 mm/h [facility] Blood BLOOD SPECIMEN / Unknown 07/26/2025 12:58 PM EDT 07/27/2025 2:17 AM EDT Narrative Resulting Agency Comment Performing Organization Information: Site ID: [id number] Name: [facility] Address: [address] [place] [phone] Director: Luis Miguel Zelaya M.D. Jose Fitzgerald MD LAB BLOOD ORDERABLES Final R esult [facility] [employer] [address] [place] [address] [place] [address] [place] [address] [facility] [address] [place] [address] * CBC auto differential (07/26/2025 12:58 PM EDT) Only the most recent of2 resultswithin the time period is included. WBC 8.9 3.8 - 10.8 Thousand/u L [facility] RBC 4.97 4.20 - 5.80 Million/uL [facility] Hemoglobin 14.2 13.2 - 17.1 g/dL [facility] Hematocrit 42.4 38.5 - 50.0 % [facility] MCV 85.3 80.0 - 100.0 fL [facility] MCH 28.6 27.0 - 33.0 pg [facility] MCHC 33.5 32.0 - 36.0 g/dL [facility] Comment: For adults, a slight decrease in the calculated MCHC value (in the range of 30 to 32 g/dL) is most likely not clinically significant; however, it should be interpreted with caution in correlation with other red cell parameters and the patient's clinical condition. RDW 12.5 11.0 - 15.0 % [facility] Platelets 363 140 - 400 Thousand/u L [facility] MPV 9.5 7.5 - 12.5 fL [facility] Neutrophils Absolute 5,082 1,500 - 7,800 cells/uL [facility] Lymphocytes Absolute 2,786 850 - 3,900 cells/uL [facility] Monocytes Absolute 498 200 - 950 cells/uL [facility] Eosinophils Absolute 418 15 - 500 cells/uL [facility] Basophils Absolute 116 0 - 200 cells/uL [facility] Neutrophils 57.1 % [facility] Lymphs 31.3 % [facility] Monocytes 5.6 % [facility] Eos 4.7 % [facility] Basos 1.3 % [facility] Blood BLOOD SPECIMEN / Unknown 07/26/2025 12:58 PM EDT 07/27/2025 2:17 AM EDT Narrative Resulting Agency Comment Performing Organization Information: Site ID: [id number] Name: [facility] Address: [address] [place] [phone] Director: Luis Miguel Zelaya M.D. us Jose Fitzgerald MD LAB BLOOD ORDERABLES Final R esult Performing Organization Address [facility] de Phone Number [employer] [address] [place] [phone] [facility] [address] [place] [phone] * (ABNORMAL) C-reactive protein (07/26/2025 12:58 PM EDT) Only the most recent of2 resultswithin the time period is included. C-Reactive Protein 11.5(H) <8.0 mg/L [facility] Blood BLOOD SPECIMEN / Unknown 07/26/2025 12:58 PM EDT 07/27/2025 2:17 AM EDT Narrative Resulting Agency Comment Performing Organization Information: Site ID: [id number] Name: [facility] Address: [address] [place] [phone] Director: Luis Miguel Zelaya M.D. us Jose Fitzgerald MD LAB BLOOD ORDERABLES Final R esult Performing Organization Address [facility] de Phone Number [facility] [employer] [address] [place] [phone] [facility] [employer] [address] [place] [phone] * Gamma GT (07/26/2025 12:58 PM EDT) Only the most recent of2 resultswithin the time period is included. GGT 20 3 - 70 U/L [facility] Blood BLOOD SPECIMEN / Unknown 07/26/2025 12:58 PM EDT 07/27/2025 2:17 AM EDT Narrative Resulting Agency Comment Performing Organization Information: Site ID: [id number] Name: [facility] Address: [address] [place] [phone] Director: Luis Miguel Zelaya M.D. us Jose Fitzgerald MD LAB BLOOD ORDERABLES Final R esult [facility] [address] [place] [address] [facility] [address] [place] [address] * Comprehensive metabolic panel (CMP): Na, K, CL, Co2, Gluc, Ca, BUN, Creat, B/C, T.Prot, Alb, Glb, A/G, AST, ALT, ALKP, T.Bili (07/26/2025 12:58 PM EDT) Only the most recent of2 resultswithin the time period is included. Glucose 83 65 - 99 mg/dL [facility] Comment: Fasting reference interval BUN 11 7 - 25 mg/dL [facility] Creatinine 0.67 0.60 - 1.24 mg/dL [facility] EGFR 135 > OR = 60 mL/min/1. 73m2 [facility] BUN/Creatinine Ratio SEE NOTE: 6 - 22 (calc) [facility] Comment: Not Reported: BUN and Creatinine are within reference range. Sodium 139 135 - 146 mmol/L [facility] Potassium 4.0 3.5 - 5.3 mmol/L [facility] Chloride 104 98 - 110 mmol/L [facility] CO2 26 20 - 32 mmol/L [facility] Calcium 9.4 8.6 - 10.3 mg/dL [facility] Total Protein 7.4 6.1 - 8.1 g/dL [facility] Albumin 4.0 3.6 - 5.1 g/dL [facility] Globulin, Total 3.4 1.9 - 3.7 g/dL (calc) [facility] A/G Ratio 1.2 1.0 - 2.5 (calc) [facility] Total Bilirubin 0.8 0.2 - 1.2 mg/dL [facility] Alkaline Phosphatase 118 36 - 130 U/L [facility] AST 20 10 - 40 U/L [facility] ALT 21 9 - 46 U/L [facility] Blood BLOOD SPECIMEN / Unknown 07/26/2025 12:58 PM EDT 07/27/2025 2:17 AM EDT Narrative Resulting Agency Comment Performing Organization Information: Site ID: [id number] Name: [facility] Address: [address] [place] [phone] Director: Luis Miguel Zelaya M.D. Jose Fitzgerald MD LAB BLOOD ORDERABLES Final R esult [facility] [employer] [address] [place] [address] [facility] [address] [place] [address] from Last 3 Months Insurance [facility] Care Teams Senior Agricultural Assistant Relationship Specialty Start Date End Date Vickie Samaniego MD [address] [place] [address] [place] [address] [place] [address] PCP - General General Pediatrics 01/16/23
--- OUTSIDE RECORDS SUMMARY | 2025-08-24 15:27 | XMS_ITS | Encounter Summary ---
Author Organization [facility] Address [address] [place] [address] Phone Care Team Providers Care Specialty Food Products Supervisor Name Role Phone Jade Dao MD Primary Care Provider [phone] Encounter Details Date Type Department Care Team (Late st Contact Info) Description 03/04/2013 Documentation [facility] Family Medicine [address] [place] [address] Family Medicine, Physician [address] [place], [place] [phone] Social History Tobacco Use Types Packs/Day Years [...] on filedocumented in this encounter Care Teams Specialty Food Products Supervisor Relationship Specialty Start Date End Date Jade Dao MD [address] [place] [address] PCP - General Pediatrics 02/03/24 05/19/24 documented as of this encounter
--- OUTSIDE RECORDS SUMMARY | 2025-08-24 15:27 | XMS_ITS | Encounter Summary ---
Author Organization [facility] Address [address] [place] [address] Care Team Providers Care Journeyman Pipefitter Name Role Phone Jermaine Og MD Primary Care Provider [phone] Vickie Samaniego MD Primary Care Provider Reason for Visit * Reason Comments Medication Refill Encounter Details Date Type Department Care Team (Late st Contact Info) Description 07/28/2022 Refill [facility] Gastroenterology, [address], [address] [place] [address] Urvashi Tarango MD [address] [place] [address] Ulcerative pancolitis Social History Tobacco Use Types Packs/Day Years Used Date Smoking Tobacco: Never Smokeless Tobacco: Never Sex and Gender Information Value Date Recorded Sex Assigned at Not on file Legal Sex Male 1:02 PM EST Gender Identity Not on file Sexual Orientation Not on file documented as of this encounter Miscellaneous Notes * Telephone Encounter - Capri Perry RN - 07/29/2022 9:17 AM EDT Last seen clinic 06-07-22 Dose correct Next appt 12-06-2022 documented in this encounter Plan of Treatment Upcoming Encounters Date Type Department Care Team (Late st Contact Info) Description 09/13/2025 1:00 PM EST Appointment Infusion Center [address] [place] [address] documented as of this encounter Visit Diagnoses Diagnosis Ulcerative pancolitis Ulcerative pancolitis- Primary documented in this encounter Care Teams Journeyman Pipefitter Relationship Specialty Start Date End Date Jermaine Og MD 150 [facility] [address] [place] [address] PCP - General General Pediatrics 03/01/21 01/15/23 Vickie Samaniego MD 150 [facility] [address] [place] [address] PCP - General General Pediatrics 01/16/23 documented as of this encounter
--- OUTSIDE RECORDS SUMMARY | 2025-08-24 15:27 | XMS_ITS | Encounter Summary ---
Author Organization [facility] Address [address] [place] [address] Phone Care Team Providers Care Morgue Keeper Name Role Phone Jade Dao MD Primary Care Provider [phone] Encounter Details Date Type Department Care Team (Late st Contact Info) Description 11/26/2013 Documentation [facility] Family Medicine [address] [place] [address] Family Medicine, Physician [address] [place], [place] [phone] Social History Tobacco Use Types Packs/Day Years [...] on filedocumented in this encounter Care Teams Morgue Keeper Relationship Specialty Start Date End Date Jade Dao MD [address] [place] [address] PCP - General Pediatrics 02/03/24 05/19/24 documented as of this encounter
--- OUTSIDE RECORDS SUMMARY | 2025-08-24 15:27 | XMS_ITS | Encounter Summary ---
Author Organization [facility] Address [address] [place] [address] Phone Care Team Providers Care Interpretative Dancer Name Role Phone Jade Dao MD Primary Care Provider [phone] Encounter Details Date Type Department Care Team (Late st Contact Info) Description 05/15/2017 Conversion Encounter [facility] [address] [place] [address] Social History Tobacco Use Types Packs/Day Years [...] on filedocumented in this encounter Care Teams Interpretative Dancer Relationship Specialty Start Date End Date Jade Dao MD [address] [place] [address] PCP - General Pediatrics 02/03/24 05/19/24 documented as of this encounter
== END 2025-08-24 12:58 | disposition home or self-care (01) ==
LOC: HO.HMCFM 12:24
PROVIDERS: PCP Nurse Practitioner Family; Visit Provider Nurse Practitioner Family
DX: K51.00 Ulcerative (chronic) pancolitis without complications (principal); M54.16 Radiculopathy, lumbar region; M77.51 Other enthesopathy of right foot and ankle; Z23 Encounter for immunization; R29.898 Other symptoms and signs involving the musculoskeletal system; M25.551 Pain in right hip

== ENCOUNTER 2025-09-07 16:19 | Outpatient (REF) | payer OTHER, SELFPAY ==
--- NOTE | ~2025-09-07 | XR_ITS ---
EXAMINATION: XR FEMUR, RIGHT CLINICAL INFORMATION: M54.16 - Radiculopathy, lumbar region COMPARISON: None available. TECHNIQUE: AP and lateral views of the right femur were obtained. FINDINGS: Right hip and knee joints are unremarkable. No fracture is evident. No abnormal soft tissue density/calcifications are evident. XR/XR femur RT 2V IMPRESSION: Unremarkable right femur Electronically signed by: Joe Dawson MD 09/07/2025 04:45 PM EST
--- OUTSIDE RECORDS SUMMARY | 2025-09-08 00:50 | XMS_ITS | Encounter Summary ---
Author Organization [facility] Address [address] [place] [address] Phone Care Team Providers Care Lithograph Designer Name Role Phone Jade Dao MD Primary Care Provider [phone] Encounter Details Date Type Department Care Team (Late st Contact Info) Description 01/25/2016 Documentation [facility] [place] Family Medicine [address] [place] [address] Family Medicine, Physician [address] [place], [place] [id number] Social History Tobacco Use Types Packs/Day Years [...] on filedocumented in this encounter Care Teams Lithograph Designer Relationship Specialty Start Date End Date Jade Dao MD [address] [place] [address] PCP - General Pediatrics 02/03/24 05/19/24 documented as of this encounter
--- OUTSIDE RECORDS SUMMARY | 2025-09-08 00:50 | XMS_ITS | Encounter Summary ---
Author Organization [facility] Address [address] [place] [address] Phone Care Team Providers Care It Software Developer Name Role Phone Jade Dao MD Primary Care Provider [phone] Encounter Details Date Type Department Care Team (Late st Contact Info) Description 11/09/2013 Documentation [facility] [place] Family Medicine [address] [place] [address] Family Medicine, Physician [address] [place], [place] [phone] Social History Tobacco Use Types Packs/Day Years [...] on filedocumented in this encounter Care Teams It Software Developer Relationship Specialty Start Date End Date Jade Dao MD [address] [place] [address] PCP - General Pediatrics 02/03/24 05/19/24 documented as of this encounter
--- OUTSIDE RECORDS SUMMARY | 2025-09-08 00:50 | XMS_ITS | Encounter Summary ---
Author Organization [facility] Address [address] [place] [address] Phone Care Team Providers Care Electronic Bench Technician Name Role Phone Jade Dao MD Primary Care Provider Encounter Details Date Type Department Care Team (Late st Contact Info) Description 02/10/2017 Documentation [facility] [place] Family Medicine [address] [place] [address] Family Medicine, Physician [address] [place], [place] [phone] Social History Tobacco Use Types Packs/Day Years [...] on filedocumented in this encounter Care Teams Electronic Bench Technician Relationship Specialty Start Date End Date Jade Dao MD [address] [place] [address] PCP - General Pediatrics 02/03/24 05/19/24 documented as of this encounter
--- OUTSIDE RECORDS SUMMARY | 2025-09-08 00:50 | XMS_ITS | Encounter Summary ---
Author Organization [facility] Address [address] [place] [address] Phone Care Team Providers Care Yarder Engineer Name Role Phone Jade Dao MD Primary Care Provider [phone] Encounter Details Date Type Department Care Team (Late st Contact Info) Description 11/26/2013 Documentation [facility] [place] Family Medicine [address] [place] [address] Family Medicine, Physician [address] [place], [place] [phone] Social History Tobacco Use Types Packs/Day Years [...] on filedocumented in this encounter Care Teams Yarder Engineer Relationship Specialty Start Date End Date Jade Dao MD [address] [place] [address] PCP - General Pediatrics 02/03/24 05/19/24 documented as of this encounter
--- OUTSIDE RECORDS SUMMARY | 2025-09-08 00:50 | XMS_ITS | Encounter Summary ---
Author Organization [facility] Address [address] [place] [address] Phone Care Team Providers Care Geoscience Professor Name Role Phone Jade Dao MD Primary Care Provider [phone] Encounter Details Date Type Department Care Team (Late st Contact Info) Description 02/21/2015 Documentation [facility] [place] [address] [place] [address] Family Medicine, Physician [address] [place], [place] [phone] Social History Tobacco Use Types Packs/Day Years [...] on filedocumented in this encounter Care Teams Geoscience Professor Relationship Specialty Start Date End Date Jade Dao MD [address] [place] [address] PCP - General Pediatrics 02/03/24 05/19/24 documented as of this encounter
--- OUTSIDE RECORDS SUMMARY | 2025-09-08 00:50 | XMS_ITS | Encounter Summary ---
Author Organization [facility] Address [address] [place] [address] Phone Care Team Providers Care Crop Consultant Name Role Phone Jade Dao MD Primary Care Provider [phone] Encounter Details Date Type Department Care Team (Late st Contact Info) Description 10/30/2016 Documentation [facility] [place] [address] [place] [address] Family Medicine, Physician [address] [place], [place] [phone] Social History Tobacco Use Types Packs/Day Years [...] on filedocumented in this encounter Care Teams Crop Consultant Relationship Specialty Start Date End Date Jade Dao MD [address] [place] [address] PCP - General Pediatrics 02/03/24 05/19/24 documented as of this encounter
--- OUTSIDE RECORDS SUMMARY | 2025-09-08 00:51 | XMS_ITS | Encounter Summary ---
Author Organization [facility] Address [address] [place] [address] Care Team Providers Care Rubber Washer Name Role Phone Jermaine Og MD Primary Care Provider Vickie Samaniego MD Primary Care Provider [phone] Reason for Visit * Reason Comments Medication Refill Encounter Details Date Type Department Care Team ( Contact Info) Description 02/28/2022 Refill [facility] Gastroenterology, [place] [address] [place] [address] Urvashi Tarango MD [address] [place] [address] Vitamin D deficiency Social History Tobacco Use [...] Upcoming Encounters Date Type Department Care Team (Latest Contact Info) Description 09/13/2025 1:00 PM EST Hospital Encounter Infusion Center 10 [facility] 2nd [place] [address] Ulcerative pancolitis (Primary Dx) documented as of this encounter Visit Diagnoses Diagnosis Vitamin D deficiency Ulcerative pancolitis- Primary documented in this encounter Care Teams Rubber Washer Relationship Specialty Start Date End Date Jermaine Og MD 150 [facility] [place] [address] [facility] [place] [address] PCP - General General Pediatrics 03/01/21 01/15/23 Vickie Samaniego MD 150 [facility] [place] [address] PCP - General General Pediatrics 01/16/23 documented as of this encounter
--- OUTSIDE RECORDS SUMMARY | 2025-09-08 00:51 | XMS_ITS | Encounter Summary ---
Author Organization [facility] Address [address] [place] [address] Care Team Providers Care Attache Name Role Phone Jermaine Og MD Primary Care Provider [phone] Vickie Samaniego MD Primary Care Provider [phone] Reason for Visit * Reason Comments Medication Refill Encounter Details Date Type Department Care Team (Late Contact Info) Description 07/28/2022 Refill [facility] Gastroenterology, [address], [address] [place] [address] Urvashi Tarango MD [address] [place] [address] Ulcerative pancolitis Social History Tobacco Use Types [...] PM EST Hospital Encounter Infusion Center [address] [place] [id number] Ulcerative pancolitis (Primary Dx) documented as of this encounter Visit Diagnoses Diagnosis Ulcerative pancolitis Ulcerative pancolitis- Primary documented in this encounter Care Teams Attache Relationship Specialty Start Date End Date Jermaine Og MD 150 [facility] [address] [place] [id number] PCP - General General Pediatrics 03/01/21 01/15/23 Vickie Samaniego MD 150 [facility] 1 [place] [address] PCP - General General Pediatrics 01/16/23 documented as of this encounter
--- OUTSIDE RECORDS SUMMARY | 2025-09-08 00:51 | XMS_ITS | Clinical Summary ---
Author Organization [facility] Address [address] [place] [address] Phone Care Team Providers Care Bisque Ware Dipper Name Role Phone Vickie Samaniego MD Primary [...] Medical Devices Not on file Insurance [facility] [place] Member Subscriber Plan / Payer (Ef fective 2021-Present) Name:Andrea Cooper Relation to Subscriber:Self Name:Andrea Cooper Payer ID:[id number] Group ID:Not on file Type:Medicaid Address: [place] [address] [place] [address] [place] [facility] [place] [facility] Care Teams Bisque Ware Dipper Relationship Specialty Start Date End Date Vickie Samaniego MD NPI: [id number] [place], [place] [address] [address] PCP - General Pediatrics 06/09/21 Additional Source Comments The information contained in this document represents components of the legal health record. It is not the complete legal health record.[facility]
--- OUTSIDE RECORDS SUMMARY | 2025-09-08 00:51 | XMS_ITS | Encounter Summary ---
Author Organization [facility] Address [address] [place] [address] Care Team Providers Care Plant Protection Supervisor Name Role Phone Jermaine Og MD Primary Care Provider [phone] Vickie Samaniego MD Primary Care Provider [phone] Reason for Visit * Reason Comments Medication Refill Encounter Details Date Type Department Care Team (Late Contact Info) Description 11/13/2022 Refill [facility] Gastroenter[address] [phone] Urvashi Tarango MD [address] [place] [address] Ulcerative pancolitis Social History Tobacco Use Types [...] PM EST Hospital Encounter Infusion Center 10 [facility] 2nd [place] [address] Ulcerative pancolitis (Primary Dx) documented as of this encounter Visit Diagnoses Diagnosis Ulcerative pancolitis Ulcerative pancolitis- Primary documented in this encounter Care Teams Plant Protection Supervisor Relationship Specialty Start Date End Date Jermaine Og MD 150 [facility] [address] [place] [address] PCP - General General Pediatrics 03/01/21 01/15/23 Vickie Samaniego MD 150 [facility] 1 [place] [address] PCP - General General Pediatrics 01/16/23 documented as of this encounter
--- OUTSIDE RECORDS SUMMARY | 2025-09-08 00:51 | XMS_ITS | Encounter Summary ---
Author Organization [facility] Address [address] [place] [address] Care Team Providers Care Certified Composites Technician Name Role Phone Jermaine Og MD Primary Care Provider [phone] Vickie Samaniego MD Primary Care Provider [phone] Reason for Visit * Reason Comments Medication Refill Encounter Details Date Type Department Care Team (Late st Contact Info) Description 10/01/2021 Refill [facility] Gastroenterology, [address], [address] [place] [address] Marisa Kelley MD Ulcerative pancolitis Social History [...] 1:00 PM EST Hospital Encounter Infusion Center [address] [place] [address] Ulcerative pancolitis (Primary Dx) documented as of this encounter Visit Diagnoses Diagnosis Ulcerative pancolitis Ulcerative pancolitis- Primary documented in this encounter Care Teams Certified Composites Technician Relationship Specialty Start Date End Date Jermaine Og MD 150 [facility] [place] [address] [place] [phone] PCP - General General Pediatrics 03/01/21 01/15/23 Vickie Samaniego MD 150 [facility] [place] [address] [place] [address] PCP - General General Pediatrics 01/16/23 documented as of this encounter
--- OUTSIDE RECORDS SUMMARY | 2025-09-08 00:51 | XMS_ITS | Encounter Summary ---
Author Organization [facility] Address [address] [place] [address] Care Team Providers Care Dx Board Operator Name Role Phone Jermaine Og MD Primary Care Provider [phone] Vickie Samaniego MD Primary Care Provider [phone] Reason for Visit * Reason Comments Medication Refill Encounter Details Date Type Department Care Team (Late st Contact Info) Description 05/27/2022 Refill [facility] Gastroenterology, [place] [address] [place] [address] Urvashi Tarango MD [address] [place] [address] Vitamin D deficiency Social History Tobacco Use [...] PM EST Hospital Encounter Infusion Center [address] [address] Ulcerative pancolitis (Primary Dx) documented as of this encounter Visit Diagnoses Diagnosis Vitamin D deficiency Ulcerative pancolitis- Primary documented in this encounter Care Teams Dx Board Operator Relationship Specialty Start Date End Date Jermaine Og MD 150 [facility] [place] [address] [place] [address] PCP - General General Pediatrics 03/01/21 01/15/23 Vickie Samaniego MD 150 [facility] 1 [place] [address] PCP - General General Pediatrics 01/16/23 documented as of this encounter
--- OUTSIDE RECORDS SUMMARY | 2025-09-08 00:51 | XMS_ITS | Encounter Summary ---
Author Organization [facility] Address [address] [place] [address] Phone Care Team Providers Care Airdrop Systems Technician Name Role Phone Jade Dao MD Primary Care Provider [phone] Encounter Details Date Type Department Care Team (Late st Contact Info) Description 06/25/2010 Documentation [facility] [place] Family Medicine [address] [place] [address] Family Medicine, Physician [address] [place], [place] [phone] Social History Tobacco Use Types Packs/Day Years [...] on filedocumented in this encounter Care Teams Airdrop Systems Technician Relationship Specialty Start Date End Date Jade Dao MD [address] [place] [address] PCP - General Pediatrics 02/03/24 05/19/24 documented as of this encounter
--- OUTSIDE RECORDS SUMMARY | 2025-09-08 00:51 | XMS_ITS | Encounter Summary ---
Author Organization [facility] Address [address] [place] [address] Phone Care Team Providers Care Technical Manager Chemical Plant Name Role Phone Jade Dao MD Primary Care Provider [phone] Encounter Details Date Type Department Care Team (Late st Contact Info) Description 10/19/2013 Documentation [facility] [place] Family Medicine [address] [place] [address] Family Medicine, Physician [address] [place], [place] [phone] Social History Tobacco Use Types Packs/Day Years [...] on filedocumented in this encounter Care Teams Technical Manager Chemical Plant Relationship Specialty Start Date End Date Jade Dao MD [address] [place] [address] PCP - General Pediatrics 02/03/24 05/19/24 documented as of this encounter
--- OUTSIDE RECORDS SUMMARY | 2025-09-08 00:51 | XMS_ITS | Clinical Summary ---
Author Organization [facility] Address [address] [place] [address] Phone Care Team Providers Care Latin Dancer Name Role Phone Unavailable Primary Care Provider Unavailabl e Allergies No known active allergies Medications ibuprofen 200 MG tablet Take 400 mg by mouth every 6 (six) hours as needed for mild pain. Active methotrexate 2.5 MG tablet 3 06/20/2020 Activ e methotrexate 10 MG tablet Take 10 mg by mouth. Active folic acid 1 MG tablet 5 06/13/2020 Active ergocalciferol 1.25 MG (75377 UT) capsule TK 1 C PO 1 TIME A WK 1 06/20/2020 Active INFLIXIMAB IV Infuse into a venous catheter. Active FeroSul 325 (65 Fe) MG tablet Take 1 tablet by mouth 2 (two) times a day. 07/30/2020 Active omeprazole 40 MG capsule 07/30/2020 Active ergocalciferol 1.25 MG (79747 UT) capsule TAKE 1 CAPSULE BY MOUTH 1 TIME A WEEK 04/03/2021 Active methotrexate 2.5 MG tablet Take 10 mg by mouth every 7 days. 08/03/2020 Active Active Problems Problem Noted Date Diagnosed Date Impaired glucose tolerance 02/06/2024 Assessment & Plan (02/06/2024 10:57 AM EDT): Was referred to weight management clinic at [facility]. Patient was seen once in May 2023. Patient has not followed up. Our medical in home caregiver will help patient to connect with weight [...] prilosec 05/09/2021 : Pt under care of [facility] GI Dr. Kelley or Dr Tarango; Remicaide infusions q 6 weeks. Infusions was started on 04/04/2020. methotrexate 4 pills every week Assessment & Plan (02/06/2024 10:55 AM EDT): [facility]. Gets Remicade infusion every 6 [...] 2:13 PM EDT): Pt under care of [facility] GI Dr. Kelley or Dr Tarango; Remicaide [...] 5:19 PM EST): Pt under care of [facility] GI Dr. Kelley; Remicaide infusion cx'd on [...] (BMI 30-39.9) 09/04/2017 Overview (01/16/2023): Referred to [facility] Wt Management program. Last seen 08/14/16. Had elevated insulin & low HDL. + Hx impaired fasting glucose. Normal HgB A1C. Mild FREDY (resolved Fall 2017) Had T & A done for FREDY in 2016. Sleep study in 2017 showed resolution of FREDY Assessment & Plan (02/06/2024 10:56 AM EDT): Was referred to sleep medicine clinic last fall due to severe obstructive sleep apnea. Patient had a tonsillectomy and adenoidectomy in January 2017. It appears that patient did not follow-up with sleep medicine. Our medical in home caregiver will help patient to connect with them. [...] day Make sure to follow up with business planning analyst this Fall as requested by them Assessment [...] 05/09/2021, 08/06/2004, 2003, Additional history exists Insurance [facility] NON PCC
--- OUTSIDE RECORDS SUMMARY | 2025-09-08 00:51 | XMS_ITS | Encounter Summary ---
Author Organization [facility] Address [address] [place] [address] Care Team Providers Care Produce Manager Name Role Phone Jermaine Og MD Primary Care Provider [phone] Vickie Samaniego MD Primary Care Provider [phone] Reason for Visit * Reason Comments Medication Refill Encounter Details Date Type Department Care Team (Late st Contact Info) Description 04/01/2021 Refill [facility] Gastroenterology, [place] [address] [place] [address] Jose Fitzgerald MD [address] [place] [address] Vitamin D deficiency Social History Tobacco Use [...] PM EST Hospital Encounter Infusion Center [address] [address] Ulcerative pancolitis (Primary Dx) documented as of this encounter Visit Diagnoses Diagnosis Vitamin D deficiency Ulcerative pancolitis- Primary documented in this encounter Care Teams Produce Manager Relationship Specialty Start Date End Date Jermaine Og MD 150 [facility] [place] 1 [place] [phone] PCP - General General Pediatrics 03/01/21 01/15/23 Vickie Samaniego MD 150 [facility] 1 [facility] [place] [id number] PCP - General General Pediatrics 01/16/23 documented as of this encounter
--- OUTSIDE RECORDS SUMMARY | 2025-09-08 00:51 | XMS_ITS | Encounter Summary ---
Author Organization [facility] Address [address] [place] [address] Care Team Providers Care Principal Account Clerk Name Role Phone Jermaine Og MD Primary Care Provider [phone] Vickie Samaniego MD Primary Care Provider [phone] Reason for Visit * Reason Comments Medication Refill Encounter Details Date Type Department Care Team (Late st Contact Info) Description 03/11/2021 Refill [facility] Gastroenterology, [address] [address] Marisa Kelley MD Vitamin D deficiency Social [...] PM EST Hospital Encounter Infusion Center 10 [facility] 2nd [place] [address] Ulcerative pancolitis (Primary Dx) documented as of this encounter Visit Diagnoses Diagnosis Vitamin D deficiency Ulcerative pancolitis- Primary documented in this encounter Care Teams Principal Account Clerk Relationship Specialty Start Date End Date Jermaine Og MD 150 [facility] [place] [address] [place] [phone] PCP - General General Pediatrics 03/01/21 01/15/23 Vickie Samaniego MD 150 [facility] 1 [place] [address] PCP - General General Pediatrics 01/16/23 documented as of this encounter
--- OUTSIDE RECORDS SUMMARY | 2025-09-08 00:51 | XMS_ITS | Encounter Summary ---
Author Organization [facility] Address [address] [place] [address] Phone Care Team Providers Care Security Systems Manager Name Role Phone Jade Dao MD Primary Care Provider [phone] Encounter Details Date Type Department Care Team (Late st Contact Info) Description 05/15/2017 Conversion Encounter [facility] [address] [place] [address] Social History Tobacco Use Types Packs/Day Years [...] on filedocumented in this encounter Care Teams Security Systems Manager Relationship Specialty Start Date End Date Jade Dao MD [address] [place] [address] PCP - General Pediatrics 02/03/24 05/19/24 documented as of this encounter
--- OUTSIDE RECORDS SUMMARY | 2025-09-08 00:51 | XMS_ITS | Clinical Summary ---
Author Organization [facility] 's Address [address] [place] [address] Care Team Providers Care Motor Vehicle Parts Interpreter Name Role Phone Vickie Samaniego MD Primary Care Provider [phone] Source Comments Please note that some or [...] so, obtain the minor's consent prior to disclosure.[facility] Allergies No known active allergies Medications [...] Noted Date Diagnosed Date Physical deconditioning 06/27/2023 [place] hump 06/26/2023 IBD (inflammatory bowel disease) 06/26/2023 BMI (body mass index), pediatric, greater than 9 9% for age 0906/26/2023 Ulcerative pancolitis 11/05/2019 Cough 10/01/2019 Resolved Problems Problem Noted Date Diagnosed Date Resolved Date Diarrhea, unspecified type 09/30/2019 0 11/05/2019 Overview (09/30/2019): Added automatically from request for surgery [id number] 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/2019 11/05/2019 Rectal bleeding 09/27/2019 11/05/2019 Encounters Date Type Department Care Team Description 07/26/2025 12:53 PM EDT - 07/26/2025 11:59 PM EDT Hospital Encounter Infusion Center [address] [facility] [address] [place] [address] Ulcerative pancolitis (Primary Dx) Discharge Disposition: Home [...] PM EST Hospital Encounter Infusion Center [address] [facility] [address] [place] [address] Ulcerative pancolitis (Primary Dx) Health Maintenance Due Date Last Done Comments [...] Routine 07/26/2025 12:58 PM EDT Ulcerative pancolitis from Last 3 Months Results * (ABNORMAL) Erythrocyte Sediment Rate (ESR) (07/26/2025 12:58 PM EDT) Pathologist [facility] Sed Rate by Modified [place]gren 28(H) < OR = 15 mm/h [facility] Blood BLOOD SPECIMEN / Unknown 07/26/2025 12:58 PM EDT 07/27/2025 2:17 AM EDT Narrative Resulting Agency Comment Performing Organization Information: Site ID: [id number] Name: [facility] Address: [address] [place] [phone] Director: Luis Miguel Zelaya M.D. Jose Fitzgerald MD LAB BLOOD ORDERABLES Final R esult [facility] [address] [place] [phone] [facility] [address] [place] [phone] * CBC auto differential (07/26/2025 12:58 PM EDT) [facility] WBC 8.9 3.8 - 10.8 Thousand/u L [facility] RBC 4.97 4.20 - 5.80 Million/uL [facility] [employer] Hemoglobin 14.2 13.2 - 17.1 g/dL [facility] Hematocrit 42.4 38.5 - 50.0 % [facility] MCV 85.3 80.0 - 100.0 fL [facility] [employer] [facility] [employer] MCH 28.6 27.0 - 33.0 pg [facility] MCHC 33.5 32.0 - 36.0 g/dL [facility] Comment: For adults, a slight decrease in the calculated MCHC value (in the range of 30 to 32 g/dL) is most likely not clinically significant; however, it should be interpreted with caution in correlation with other red cell parameters and the patient's clinical condition. RDW 12.5 11.0 - 15.0 % [facility] Platelets 363 140 - 400 Thousand/u L [facility] MPV 9.5 7.5 - 12.5 fL [facility] Neutrophils Absolute 5,082 1,500 - 7,800 cells/uL [facility] Lymphocytes Absolute 2,786 850 - 3,900 cells/uL [facility] Monocytes Absolute 498 200 - 950 cells/uL [facility] Eosinophils Absolute 418 15 - 500 cells/uL [facility] Basophils Absolute 116 0 - 200 cells/uL [facility] Neutrophils 57.1 % [facility] Lymphs 31.3 % [facility] Monocytes 5.6 % [facility] Eos 4.7 % [facility] Basos 1.3 % [facility] Blood BLOOD SPECIMEN / Unknown 07/26/2025 12:58 PM EDT 07/27/2025 2:17 AM EDT Narrative Resulting Agency Comment Performing Organization Information: Site ID: [id number] Name: [facility] Address: [address] [place] [phone] Director: Luis Miguel Zelaya M.D. Jose Fitzgerald MD LAB BLOOD ORDERABLES Final R esult [facility] [address] [place] [address] [address] [place] [phone] [facility] [address] [place] [phone] * (ABNORMAL) C-reactive protein (07/26/2025 12:58 PM EDT) C-Reactive Protein 11.5(H) <8.0 mg/L [facility] Blood BLOOD SPECIMEN / Unknown 07/26/2025 12:58 PM EDT 07/27/2025 2:17 AM EDT Narrative Resulting Agency Comment Performing Organization Information: Site ID: [id number] Name: [facility] Address: [address] [place] [phone] Director: Luis Miguel Zelaya M.D. Jose Fitzgerald MD LAB BLOOD ORDERABLES Final R esult Performing Organization Address [facility] Co de Phone Number [facility] [address] [place] [phone] [facility] [address] [place] [phone] * Gamma GT (07/26/2025 12:58 PM EDT) GGT 20 3 - 70 U/L [facility] Blood BLOOD SPECIMEN / Unknown 07/26/2025 12:58 PM EDT 07/27/2025 2:17 AM EDT Narrative Resulting Agency Comment Performing Organization Information: Site ID: [id number] Name: [facility] Address: [address] [place] [phone] Director: Luis Miguel Zelaya M.D. Jose Fitzgerald MD LAB BLOOD ORDERABLES Final R esult Performing Organization Address [facility] de Phone Number [facility] [address] [place] [phone] [facility] [address] [place] [phone] * Comprehensive metabolic panel (CMP): Na, K, CL, Co2, Gluc, Ca, BUN, Creat, B/C, T.Prot, Alb, Glb, A/G, AST, ALT, ALKP, T.Bili (07/26/2025 12:58 PM EDT) Glucose 83 65 - 99 mg/dL [facility] Comment: Fasting reference interval BUN 11 7 - 25 mg/dL [facility] Creatinine 0.67 0.60 - 1.24 mg/dL [facility] EGFR 135 > OR = 60 mL/min/1. 73m2 [facility] BUN/Creatinine Ratio SEE NOTE: 6 - 22 (calc) [facility] Comment: Not Reported: BUN and Creatinine are within reference range. Sodium 139 135 - 146 mmol/L [facility] Potassium 4.0 3.5 - 5.3 mmol/L [facility] Chloride 104 98 - 110 mmol/L [facility] CO2 26 20 - 32 mmol/L [facility] Calcium 9.4 8.6 - 10.3 mg/dL [facility] Total Protein 7.4 6.1 - 8.1 g/dL [facility] Albumin 4.0 3.6 - 5.1 g/dL [facility] Globulin, Total 3.4 1.9 - 3.7 g/dL (calc) [facility] A/G Ratio 1.2 1.0 - 2.5 (calc) [facility] Total Bilirubin 0.8 0.2 - 1.2 mg/dL [facility] Alkaline Phosphatase 118 36 - 130 U/L [facility] AST 20 10 - 40 U/L [facility] ALT 21 9 - 46 U/L [facility] Blood BLOOD SPECIMEN / Unknown 07/26/2025 12:58 PM EDT 07/27/2025 2:17 AM EDT Narrative Resulting Agency Comment Performing Organization Information: Site ID: [id number] Name: [facility] Address: [address] [place] [phone] Director: Luis Miguel Zelaya M.D. us Jose Fitzgerald MD LAB BLOOD ORDERABLES Final R esult [facility] [address] [place] [address] [address] [place] [phone] [facility] [address] [place] [phone] from Last 3 Months Insurance [facility] Credit [employer] Care Teams Motor Vehicle Parts Interpreter Relationship Specialty Start Date End Date Vickie Samaniego MD [address] [facility] [address] [place] [address] PCP - General General Pediatrics 01/16/23
--- OUTSIDE RECORDS SUMMARY | 2025-09-08 00:51 | XMS_ITS | Encounter Summary ---
Author Organization [facility] Address [address] [place] [phone] Care Team Providers Care Automotive Painter Name Role Phone Jermaine Og MD Primary Care Provider [phone] Vickie Samaniego MD Primary Care Provider [phone] Reason for Visit * Reason Comments Medication Refill Encounter Details Date Type Department Care Team ( Contact Info) Description 12/04/2021 Refill [facility] Gastroenterology, [place] [address] [place] [address] Urvashi Tarango MD [address] [place] [phone] Vitamin D deficiency Social History Tobacco Use [...] PM EST Hospital Encounter Infusion Center [address] [facility] [address] [place] [address] Ulcerative pancolitis (Primary Dx) documented as of this encounter Visit Diagnoses Diagnosis Vitamin D deficiency Ulcerative pancolitis- Primary documented in this encounter Care Teams Automotive Painter Relationship Specialty Start Date End Date Jermaine Og MD [address] [facility] [address] [place] [phone] PCP - General General Pediatrics 03/01/21 01/15/23 Vickie Samaniego MD [address] [facility] [address] [place] [address] PCP - General General Pediatrics 01/16/23 documented as of this encounter
--- OUTSIDE RECORDS SUMMARY | 2025-09-08 00:51 | XMS_ITS | Encounter Summary ---
Author Organization [facility] Address [address] [place], [place] [id number] Care Team Providers Care Rolled Glass Crosscutter Name Role Phone Jermaine Og MD Primary Care Provider [phone] Vickie Samaniego MD Primary Care Provider [phone] Reason for Visit * Reason Comments Medication Refill Encounter Details Date Type Department Care Team ([facility] st Contact Info) Description 10/01/2021 Refill [facility] Gastroenterology, [place] [address] [place] [address] Jose Fitzgerald MD [address] [place] [address] Vitamin D deficiency Social History Tobacco Use [...] Encounter Infusion Center [facility] [address]nd [place] [address] Ulcerative pancolitis (Primary Dx) documented as of this encounter Visit Diagnoses Diagnosis Vitamin D deficiency Ulcerative pancolitis- Primary documented in this encounter Care Teams Rolled Glass Crosscutter Relationship Specialty Start Date End Date Jermaine Og MD [address] [facility] [address] [place] [phone] PCP - General General Pediatrics 03/01/21 01/15/23 Vickie Samaniego MD [address] [facility] [address] [place] [address] PCP - General General Pediatrics 01/16/23 documented as of this encounter
--- OUTSIDE RECORDS SUMMARY | 2025-09-08 00:51 | XMS_ITS | Encounter Summary ---
Author Organization [facility] Address [address] [place] [phone] Phone Care Team Providers Care Bean Viner Name Role Phone Jade Dao MD Primary Care Provider [phone] Encounter Details Date Type Department Care Team (Late st Contact Info) Description 03/04/2013 Documentation [facility] Family Medicine [address] [place] [address] Family Medicine, Physician [address] [place], [place] [phone] Social History Tobacco Use Types Packs/Day Years [...] on filedocumented in this encounter Care Teams Bean Viner Relationship Specialty Start Date End Date Jade Dao MD [address] [place] [phone] PCP - General Pediatrics 02/03/24 05/19/24 documented as of this encounter
--- OUTSIDE RECORDS SUMMARY | 2025-09-08 00:51 | XMS_ITS | Encounter Summary ---
Author Organization [facility] Address [address] [place] [address] Phone Care Team Providers Care Inspector Ball Points Name Role Phone Jade Dao MD Primary Care Provider [phone] Encounter Details Date Type Department Care Team (Late st Contact Info) Description 06/25/2010 Documentation [facility] Family Medicine [address] [place] [address] Family Medicine, Physician [address] [place], [place] [phone] Social History Tobacco Use Types Packs/Day Years [...] on filedocumented in this encounter Care Teams Inspector Ball Points Relationship Specialty Start Date End Date Jade Dao MD [address] [place] [address] PCP - General Pediatrics 02/03/24 05/19/24 documented as of this encounter
== END 2025-09-07 16:20 | disposition home or self-care (01) ==
LOC: HO.XRAY 16:19
PROVIDERS: PCP Nurse Practitioner Family; Visit Provider Nurse Practitioner Family
DX: M25.551 Pain in right hip (principal); M54.16 Radiculopathy, lumbar region; R29.898 Other symptoms and signs involving the musculoskeletal system
CPT/HCPCS: 73552

== ENCOUNTER → 2025-09-07 16:23 | Outpatient (BNV) | payer OTHER, SELFPAY | PROVIDERS: PCP Nurse Practitioner Family; Visit Provider Radiology Diagnostic Radiology | DX: M54.16 Radiculopathy, lumbar region (principal) | CPT/HCPCS: 73552 ==